=== PATIENT | female | born 1955 | race African-American/Black ===

== ENCOUNTER 2019-07-07 18:36 | Inpatient (IN) | payer OTHER ==
[~2019-07-07] VITALS: Ht 165.1 cm; Wt 68.5 kg
[~2019-07-07 18:36] MED LIST: ANTIVERT25 MG PO
[2019-07-07 18:41] VITALS: BP 103/66
[2019-07-07 20:40] LABS: URINE BILIRUBIN NEGATIVE (Negative); URINE BLOOD NEGATIVE (Negative); URINE CLARITY CLEAR; URINE COLOR YELLOW; URINE GLUCOSE-RANDOM* NEGATIVE (Negative); URINE KETONES NEGATIVE (Negative); URINE LEUKOCYTES-REFLEX NEGATIVE (Negative); URINE NITRITE-REFLEX NEGATIVE (Negative); URINE PROTEIN (DIPSTICK) NEGATIVE (Negative); URINE SPECIFIC GRAVITY <= 1.005 (1.005-1.035)
[2019-07-07 20:52] LABS: ABSOLUTE NEUTROPHILS 3.3 thou/uL (1.4-8.2); BASOPHILS 1.1 % (0.0-2.0); EOSINOPHILS 1.3 % (0.0-3.0); HEMATOCRIT 36.9 % (37.0-47.0); MCH 34.7 pg (26.0-34.0); MCHC 35.1 g/dL (28.0-37.0); MCV 98.7 fL (80.0-100.0); MONOCYTES 9.1 % (1.0-8.0); PLATELET COUNT 258 thou/uL (150-400); POLYS 47.5 % (36.0-66.0); RBC 3.74 mil/uL (4.20-5.00); RDW 14.9 % (10.5-14.5)
[2019-07-07 21:01] LABS: PROTIME 10.8 Seconds (9.3-11.4)
[2019-07-07 21:09] LABS: ALBUMIN 2.9 g/dL (3.4-5.0); ANION GAP 12 mmol/L (7-16); BUN 1 mg/dL (7-18); CALCIUM 9.2 mg/dL (8.5-10.1); CHLORIDE 95 mmol/L (98-107); CO2 28 mmol/L (21-32); CREATININE 0.7 mg/dL (0.6-1.0); GLUCOSE 92 mg/dL (74-106); LIPASE 143 U/L (73-393); MAGNESIUM 1.8 mg/dL (1.8-2.4); SGOT 164 U/L (15-37); SGPT 77 U/L (30-65); SODIUM 135 mmol/L (136-145); TOTAL BILIRUBIN 0.9 mg/dL (<0.1-1.0); TOTAL PROTEIN 7.2 g/dL (6.4-8.2); TROPONIN-I <0.06 ng/mL (<0.06)
[2019-07-07 21:20] LABS: POTASSIUM 2.2 mmol/L (3.5-5.1)
[2019-07-07 22:37] VITALS: BP 154/84
[2019-07-07] MEDS ORDERED: PRED FORTE 1% EY5 M1 OPHTHALMIC (22:43)
[2019-07-07 23:30] VITALS: BP 135/82
[2019-07-08 01:16] LABS: FOLIC ACID 9.1 ng/mL (8.6-58.9); TSH 1.876 uIU/mL (0.358-3.740)
[2019-07-08 02:29] LABS: AMP/METHAMP Negative (Negative); BARBITURATES Negative (Negative); BENZODIAZEPINES Negative (Negative); COCAINE Negative (Negative); METHADONE Negative (Negative); OPIATES Negative (Negative); PCP Negative (Negative)
[2019-07-08 04:00] VITALS: BP 107/56
--- NOTE | 2019-07-08 04:14 | NUR ---
PT. ARRIVED AROUND 2300; A0X4; ABLE TO TRANSFER FROM STRETCHER TO BED; AMBULATES WITH CANE; C/O PAIN OVER IV; R. HAND; POTASSIUM RUNNING; SHOUT DUE TO PAIN OVER HAND; REQUESTED TO CHANGE IV SITE; RESTLESS; AGITATED DUE PAIN OVER R. HAND; IV CHANGE TO L. FA; ST. "I DO NOT WANT ANYTHING ANYMORE"; EDUCATED ABOUT THE NEED OF HAVING POTASSIUM; HS MEDICATION GIVEN; EDUCATED ABOUT CALLING BEFORE STANDING FROM BED; ST. UNDERSTANDING; NO TREMORS; NO C/O N/V; NO C/O PAIN; AOX4; MONITORING; EARLY ON THE MORNING C/O ITCHING; DREDGE ENGINEER NOTIFIED; ORDERS RECEIVED; ASSESSMENT CHARGED; FOLLOWING POC; WILL PASS ON REPORT.
[2019-07-08 05:23] LABS: ALBUMIN 2.6 g/dL (3.4-5.0); CALCIUM 8.9 mg/dL (8.5-10.1); CREATININE 0.7 mg/dL (0.6-1.0); TOTAL BILIRUBIN 1.2 mg/dL (<0.1-1.0); TOTAL PROTEIN 6.3 g/dL (6.4-8.2)
[2019-07-08 05:35] LABS: POTASSIUM 2.8 mmol/L (3.5-5.1)
[2019-07-08 07:45] VITALS: BP 137/85
[2019-07-08 11:40] VITALS: BP 155/126
--- NOTE | 2019-07-08 13:04 | EKG ---
[place] [address] [facility] [place] [address] ELECTROCARDIOGRAM REPORT Name: RADHA MALONEY Room #: 205-P ADM IN M.R.#: [id number] ������������������ Admission: 07/07/19 ������������������ Attend Phys: Carrillo Leary MD Discharge: ������������������ Date of : 55 Report #: [id number] ����������������������������������������������������������������� [id number] THIS REPORT FOR: //name// [facility] ED Test Date: 2019-07-07 Test Time: 18:43:30 Pat Name: RADHA MALONEY Department: Room: 205 Gender: F Superintendent: CARYN : 1955 Requested By: Myles Ospina Order Number: [id number] MD: Trevin Wheatley Measurements Intervals [place] Rate: 75 P: 64 ND: 140 QRS: 44 QRSD: 88 T: 253 QT: 391 QTc: 437 Interpretive Statements Sinus rhythm Nonspecific ST and T wave abnormality Compared to ECG 06/03/2017 14:07:05 Sinus bradycardia no longer present Electronically Signed On 07-08-2019 13:04:33 CDT by Trevin Wheatley [email or web address] ��������������������������������������������� <ELECTRONICALLY SIGNED> ���������������������������������������� By: Trevin Wheatley MD, [facility] ��������������������������������������������� 07/08/19 1304 [id number] Trevin Wheatley MD, FAC /EPI
[2019-07-08 14:42] LABS: % SATURATION 129 % (20-39); IRON 117 ug/dL (50-170); TIBC 91 ug/dL (250-450)
[2019-07-08 15:01] LABS: CALCIUM 8.6 mg/dL (8.5-10.1); CREATININE 0.8 mg/dL (0.6-1.0); POTASSIUM 3.5 mmol/L (3.5-5.1)
[2019-07-08 16:00] VITALS: BP 97/64
--- NOTE | 2019-07-08 16:27 | NUR ---
ASSESSMENT CHARTED. PT ALERT AND ORIENTED. VSS. ON CIWA PROTOCAL. HAD I EPISODE OF DIARRHEA THIS AFTERNOON. FAMILY AT THE BEDSIDE. FAMILY UPDATED ON PT'S PROGRESS. FALL PRECAUTION IN PLACE. WILL CONTINUE TO MONITOR.
[2019-07-08 20:00] VITALS: BP 104/70
[2019-07-08 22:06] LABS: IgG 1220 mg/dL (700-1600)
[2019-07-09 01:10] LABS: GLYCOHEMOGLOBIN (HGB A1C) 5.1 % (4.8-5.6)
--- NOTE | 2019-07-09 04:20 | NUR ---
RECEIVED PT'S CARE AT 1913; PT. ON BED; AOX4; RELATIVES AT THE BED SIDE; NO C/O PAIN; DURING ASSESSMENT NO C/O HEADACHE; C/O MILD ITCHING; NO NAUSEA OR VOMITING; HS MEDICATION GIVEN; ST. HAVING DIARRHEA THROGUH THE DAY; EDUCATED ABOUT NPO AFTER MIDNIGHT; ST. UNDERSTANDING; REQUESTED PRN SLEEP MEDICATION AROUND 2330; MEDICATION GIVEN; ABLE TO REST THROUGH THE NIGHT WITH EYES CLOSED; NPO AFTER MIDNIGHT; ASSESSMENT CHARGED; FOLLOWING POC; WILL PASS ON REPORT.
[2019-07-09 04:30] VITALS: BP 123/65
[2019-07-09 06:16] LABS: CALCIUM 8.4 mg/dL (8.5-10.1); CREATININE 0.6 mg/dL (0.6-1.0); MAGNESIUM 1.7 mg/dL (1.8-2.4); PHOSPHORUS 2.4 mg/dL (2.5-4.9)
[2019-07-09 07:35] VITALS: BP 125/78
--- NOTE | 2019-07-09 10:10 | NUR ---
met with patient who lives alone in [facility]. She rec SSI. She has HBCS 2 hours a day every day. She does not drive, she is disabled. She has supportive family to assist with driving. She does not want ETOH cessation/support resources. She drinks approx 4 beers a day. She does not work so she reports it may take her 2 hours to drink a beer. She reports she sees no problem with ETOH consumption. Plan home independent once stable. [place].
[2019-07-09 11:50] VITALS: BP 144/79
[2019-07-09 13:12] LABS: CERULOPLASMIN 18.2 mg/dL (19.0-39.0)
[2019-07-09 14:07] LABS: ANA INTERPRETATION Negative (Negative)
[2019-07-09 15:30] VITALS: BP 103/76
[2019-07-09 16:09] LABS: HAV IgM AB (ANTI-HAV IgM) Negative (Negative); HEPATITIS B SURFACE AG Negative (Negative); HEPATITIS C VIRUS AB 0.1 (0.0-0.9)
--- NOTE | 2019-07-09 17:31 | NUR ---
PT ALERT AND ORIENTED. VSS. DENIED HAVING PAIN OR DISCOMFORT. CONTACT ISSOLATION DISCONTINUED. FAMILY UPDATED ON PT PROGRESS. NPO AFTER MIDNIGHT. EGD IN AM. WILL CONTINUE TO MONITOR.
[2019-07-09 20:04] VITALS: BP 123/76
--- NOTE | 2019-07-10 04:53 | NUR ---
Assumed care of pt at 1900. VSS and SR on monitor. Pt has c/o diarrhea which is being treated per poc. Pt has been NPO since midnight for procedure today. Pt did not get a full rest thru the night due to constant bathroom needs. Will continue to monitor and follow pt poc.
[2019-07-10 05:17] VITALS: BP 102/59
[2019-07-10 08:29] VITALS: BP 102/58
[2019-07-10 09:02] LABS: HEMATOCRIT 31.8 % (37.0-47.0); MCH 34.2 pg (26.0-34.0); MCV 100.5 fL (80.0-100.0); RBC 3.17 mil/uL (4.20-5.00); RDW 15.7 % (10.5-14.5)
[2019-07-10 09:16] LABS: ALBUMIN 2.3 g/dL (3.4-5.0); CALCIUM 8.7 mg/dL (8.5-10.1); CREATININE 0.6 mg/dL (0.6-1.0); MAGNESIUM 1.8 mg/dL (1.8-2.4); POTASSIUM 3.7 mmol/L (3.5-5.1); TOTAL BILIRUBIN 0.8 mg/dL (<0.1-1.0)
[2019-07-10 09:19] LABS: HEMOGLOBIN 10.8 gm/dL (12.0-15.0)
[2019-07-10 11:50] VITALS: BP 127/80
--- NOTE | 2019-07-10 15:07 | NUR ---
PT ALERT AND ORIENTED. VSS. HAD EGD THIS AM. DENIED HAVING PAIN. NO CONCERNS AT THIS TIME. PROGRESSING WELL TOWARD DISCHARGE GOAL. WILL CONTINUE TO MONITOR.
[2019-07-10 16:55] VITALS: BP 124/82
[2019-07-10 19:26] VITALS: BP 106/61
--- NOTE | 2019-07-11 01:15 | P ---
[facility] [place] [address] PROCEDURE REPORT Name: RADHA MALONEY Room #: 205-P ADM IN M.R.#: [id number] Admission: 07/07/19 ������������������ Attend Phys: Carrillo Leary MD Discharge: ������������������ Date of : 55 Report #: [id number] THIS REPORT FOR: //name// CC: [facility] physician/PCP CARRILLO Leary DATE OF SERVICE: 07/10/2019 PROCEDURE: EGD with biopsies. PATIENT OF: Dr. Carrillo Leary. INDICATIONS FOR PROCEDURE: This patient has had a month of nausea, vomiting, early satiety and weight loss. Etiology is uncertain. Informed consent for this procedure was obtained from the patient prior to the administration of any medication. The risks are as follows and include, but are not limited to bleeding, perforation, infection, complications of sedation and the possibility I could miss something. DESCRIPTION OF PROCEDURE: With the patient in the left lateral decubitus position, the Olympus upper videoscope was introduced through the upper esophageal sphincter and advanced under direct visualization to the third portion of the duodenum. Findings are noted on withdrawal of the scope. Second portion of the duodenum appears normal throughout as does the duodenal sweep and duodenal bulb. Pylorus, normal mucosa. The antrum is atrophic appearing and erythematous. Biopsies were obtained x2 from the antrum and x2 from the body of the stomach and placed in the same bottle. We are checking for H. pylori as well as any other findings that might show up histologically. Body, erythematous mucosa with areas of atrophic mucosa. Cardia and fundus, mildly atrophic mucosa also noted in the cardia and the fundus. The patient does have a small hiatal hernia. The scope was withdrawn into the esophagus. The Z-line is appropriately located at the top of gastric folds and appears normal. The esophageal mucosa appears normal throughout its entirety. The scope was withdrawn. The patient went to the recovery room in stable condition. She tolerated the procedure well. IMPRESSION: 1. Diffuse moderate atrophic gastritis. 2. Normal esophagus and duodenum to the third portion. RECOMMENDATIONS: To await the biopsy results. We will ask that she had a nuclear medicine gastric emptying study done tomorrow because it sounds like she may have gastroparesis. [address] [address] PROCEDURE REPORT Name: RADHA MALONEY Room #: 205-P [facility] IN M.R.#: [id number] Admission: 07/07/19 ������������������ Attend Phys: Carrillo Leary MD Discharge: ������������������ Date of : 55 Report #: [id number] Thank you very much once again for allowing me to participate in her care, Dr. Leary. ��������������������������������������������� <ELECTRONICALLY SIGNED> ���������������������������������������� By: Norma Alegria DO ��������������������������������������������� 07/11/19 0115 1325 [id number] Norma Alegria, DO /nt
--- NOTE | 2019-07-11 04:32 | NUR ---
ASSUMED PT CARE AT 1900. PT VSS AND PT PROGRESSING TOWARDS DISCHARGE GOALS. PT SLEPT THRU NIGHT. WILL CONTINUE TO MONITOR PER POC.
[2019-07-11 04:43] VITALS: BP 122/73
[2019-07-11 05:29] LABS: HEMATOCRIT 29.1 % (37.0-47.0); HEMOGLOBIN 10.1 gm/dL (12.0-15.0); MCH 34.9 pg (26.0-34.0); MCHC 34.5 g/dL (28.0-37.0); RBC 2.88 mil/uL (4.20-5.00); RDW 15.6 % (10.5-14.5); WBC 5.3 thou/uL (4.0-11.0)
[2019-07-11 05:56] LABS: CALCIUM 8.5 mg/dL (8.5-10.1); CREATININE 0.5 mg/dL (0.6-1.0); MAGNESIUM 1.6 mg/dL (1.8-2.4); POTASSIUM 3.5 mmol/L (3.5-5.1)
[2019-07-11 07:50] VITALS: BP 117/68
[2019-07-11] MEDS ORDERED: NEURONTIN 300300 M1 PO (10:08)
[2019-07-11] MEDS ORDERED: PANTOPRAZOLE SO40 M1 PO (10:08)
[2019-07-11] MEDS ORDERED: VITAMIN B-1100 M2 PO (10:09)
[2019-07-11] MEDS ORDERED: MULTIPLE VITAM1 EACH PO (10:10)
[2019-07-11 10:55] VITALS: BP 117/68
--- NOTE | 2019-07-11 12:26 | NUR ---
ASSESSMENT CHARTED. PT ALERT AND ORIENTED. VSS. DENIED HAVING PAIN OR DISCOMFORT.ORDERS GIVEN TO DISCHARGE PT TO HOME. DISCHARGE INSTRUCTIONS GIVEN TO PT. PT VERBERLIZED UNDERSTANDING.
--- NOTE | 2019-07-11 12:40 | NUR ---
Pt is dcing home this afternoon via family car. Pt has a rwalker for home use. Pt to have a f/u with new pcp at [facility] on the . Pt's dtr and family with questions about ethol tx resources and f/u mental health. Questions answered. Pt non commital on quiting. Support provided. Pt to f/u with her new pcp about getting a rolator walker. No cm interventions indicated. Case closed.
--- NOTE | 2019-07-11 16:06 | PATH ---
[facility] [address] [place] [address] PATHOLOGY RPT PROCEDURE Name: RADHA MALONEY Room #: 205-P DIS IN M.R.#: [id number] ������������������ Admission: 07/07/19 ������������������ Date of : 55 Discharge: 07/11/19 Report #: [id number] Path Case #: [id number] [facility] Accession Number: [id number] . 01 Material submitted: . stomach - BIOPSY GASTRITIS R/O H. PYLORI . 01 Clinical history: . Pre-OP DX: Nausea, vomiting, weight loss Post-OP DX: Gastritis . 02 Diagnosis: Gastritis mucosa, gastritis rule out H. 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 - Focal intestinal metaplasia present. - Negative for atrophy or dysplasia. - Properly controlled immunohistochemical stain performed showing scant number of organisms present. (IUV/db; 07/11/2019) LBQ 07/11/2019 1429 Local . 02 Electronically signed: . America Golden MD, Pathologist NPI- [id number] . 01 Gross description: . Received in formalin labeled "Radha Maloney, BX gastritis, rule out H. pylori," are 4 segments of mullins soft tissue measuring 1.0 x 0.6 x 0.1 cm in aggregate dimensions and ranging from 0.2 to 0.4 cm in maximum dimension. The specimen is submitted entirely in cassette A1. (TSD; 07/10/2019) TOB/TOB 07/10/[address] [place] [address] . 02 Pathologist provided ICD-10: K29.50, B96.81 . 02 CPT . 693515, D38112 Specimen Comment: A courtesy copy of this report has been sent to Specimen Comment: [phone], . Specimen Comment: Report sent to / DR BLANCO Performed at: [address] [id number] MD Damian Contreras MD Phone: [phone] Performed at: [address] [address] PATHOLOGY RPT PROCEDURE Name: RAHDA MALONEY Room #: 205-P DIS IN M.R.#: [id number] ������������������ Admission: 07/07/19 ������������������ Date of : 55 Discharge: 07/11/19 Report #: [id number] Path Case #: [id number] [address] [facility] [place], [place] [id number] MD America Golden MD Phone: [phone]
== END 2019-07-11 12:42 | disposition home or self-care (01) | DRG 391 ==
LOC: ER 18:36 → 2N 21:58 → EROBS 21:58 → 2N 22:44 → ENTRNSPT 07-11 12:32 → EDTRNSPTSTS 07-11 12:34 → 2N 07-11 12:42
PROVIDERS: Emergency Medicine; Nurse Practitioner; Nurse Practitioner Family; ADMIT Internal Medicine
PROC: 0DB68ZX Excision of Stomach, Via Natural or Artificial Opening Endoscopic, Diagnostic (ICD-10-PCS; principal; 2019-07-10)
DX: K31.84 Gastroparesis (principal); E43 Unspecified severe protein-calorie malnutrition; E87.6 Hypokalemia; F10.10 Alcohol abuse, uncomplicated; K44.9 Diaphragmatic hernia without obstruction or gangrene; F17.210 Nicotine dependence, cigarettes, uncomplicated; F10.129 Alcohol abuse with intoxication, unspecified; R74.0 Nonspecific elevation of levels of transaminase and lactic acid dehydrogenase [LDH]; K76.0 Fatty (change of) liver, not elsewhere classified; K29.40 Chronic atrophic gastritis without bleeding; H16.3 Interstitial and deep keratitis; G62.9 Polyneuropathy, unspecified; Z68.25 Body mass index [BMI] 25.0-25.9, adult; Z71.6 Tobacco abuse counseling; Z71.41 Alcohol abuse counseling and surveillance of alcoholic
CPT/HCPCS: 10081; 62110; 62900; 70005

== ENCOUNTER 2019-08-01 13:36 | Inpatient (IN) | payer OTHER ==
[~2019-08-01] VITALS: Ht 165.1 cm; Wt 78.5 kg
--- NOTE | ~2019-08-01 | EMS ---
[facility] [address] [place] [address] EMS Patient Care Report Name: RADHA MALONEY Room #: 362-P ADM IN M.R.#: [id number] Admission: 08/01/19 Attend Phys: Blanca Kaufman MD Discharge: Date of : 55 Report #: [id number] THIS REPORT FOR: //name// Report Transmitted: 08/01/2019 21:58 EMS Care Summary [place], [place]/[facility] Incident [id number] @ 08/01/2019 12:59 Incident Location [address] [place] [address] Patient RADHA MALONEY Female, 64 Years 1955 Patient Address [address] [place], [place] [id number] Patient History Other,Gastro-Esophageal Reflux Disease (GERD), Patient Allergies No known allergies, Patient Medications Humira, Gabapentin, Pantoprazole, Chief Complaint Unable to get up when I fall Disposition Transported No Lights/[place] Dispatch Reason Falls Transported To [facility] Narrative Family reports that pt has fallen several times over the past 24 hrs and was on the floor for 2 hours before calling 911. 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 Pt complains of feeling weak and has not eaten in 3 days. She is unable to hold herself upright without a cane and is mildly dizzy. Pt denies having any medical complaint prior to falls or suffering any physical trauma as a result. CPSS exam is negative and pt was seen by EMS last night and CPSS was reported to negative at that time also. Exam reveals thick oral candidiasis covering her entire tongue with brown nicotine staining on the posterior portion. 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 No other signs of CVA found upon exam. Initial Vitals @13:22P: 79,R: 14,BP: 112/75,Pain: 0/10,GCS: 15,SpO2: 96,Revised Trauma: 12, @13:10P: 81,R: 18,BP: 117/81,Pain: 0/10,GCS: 15,Temp: 99.5F,Glucose: 151,SpO2: 95,Revised Trauma: 12, Assessments @13:11MENTAL:Person Oriented,Time Oriented,Place Oriented,Event Oriented,SKIN:HEENT:Eyes: Left: Other,Eyes: Left Pupil: 2-mm,Eyes: Left: Blind,Eyes: Right Pupil: 4-mm,Neck/Airway: No Abnormalities,LUNG SOUNDS:General: No Abnormalities,ABDOMEN:General: No Abnormalities,PELVIS//GI:Incontinence,EXTREMITIES:Capillary Refill: Left Upper: < 2 Sec,Left Leg: Edema,Right Leg: Edema,Left Arm: No Abnormalities,Right Arm: No Abnormalities,PULSE:Radial: 2+ Normal,NEURO:No Abnormalities,@13:24MENTAL:Place Oriented,Event Oriented,Person Oriented,Time Oriented,SKIN:HEENT:Eyes: Left Pupil: 2-mm,Eyes: Left: Constricted,Eyes: Right Pupil: 4-mm,Eyes: Left: Other,Eyes: Left: Blind,Head/Face: No Abnormalities,Neck/Airway: No Abnormalities,LUNG SOUNDS:General: No Abnormalities,ABDOMEN:General: No Abnormalities,PELVIS//GI:No Abnormalities,EXTREMITIES:Right Leg: Edema,Left Leg: Edema,Capillary Refill: Left Upper: < 2 Sec,Left Arm: No Abnormalities,Right Arm: No Abnormalities,PULSE:Radial: 2+ Normal,NEURO:No Abnormalities, Impression Fever Procedures @13:10ALS AssessmentResponse: UnchangedSucceeded@13:15StairchairResponse: Unchanged@13:17StretcherResponse: Unchanged Timeline 12:56,Call Received 12:56,Dispatch Notified 12:59,Dispatched 13:00,En Route 13:04,On Scene 13:05,At Patient [address] [place] [address] EMS Patient Care Report Name: RADHA MALONEY Room #: 362-P [facility] IN M.R.#: [id number] Admission: 08/01/19 Attend Phys: Blanca Kaufman MD Discharge: Date of : 55 Report #: [id number] 13:10,ALS Assessment,Response: UnchangedSucceeded, 13:10,BP: 117/81 M,PULSE: 81,RR: 18 R,SPO2: 95 Ox,ETCO2: ,B,PAIN: 0,GCS: 15, 13:15,Stairchair,Response: Unchanged 13:17,Stretcher,Response: Unchanged 13:19,Depart Scene 13:22,BP: 112/75 M,PULSE: 79,RR: 14 R,SPO2: 96 Ox,ETCO2: ,BG: ,PAIN: 0,GCS: 15, 13:32,At Destination 13:48,Call Closed Disclaimer v1.1 Copyright 2019 [employer] This EMS Care Summary contains data elements from the applicable legal record (which may be displayed differently). It is designed to provide pertinent information for the following purposes: continuity of care, clinical quality, and state data reporting. The complete legal record is available to ED staff and administrators of the receiving hospital in [employer] Patient Tracker. All data is provided "as is."
[~2019-08-01 13:36] MED LIST changes: +MULTIPLE VITAM1 EACH PO; +NEURONTIN 300300 M1 PO; +PANTOPRAZOLE SO40 M1 PO; +PRED FORTE 1% EY5 M1 OPHTHALMIC; +VITAMIN B-1100 M2 PO
[2019-08-01 14:53] LABS: HEMOGLOBIN 12.6 gm/dL (12.0-15.0); MCH 34.5 pg (26.0-34.0); MCHC 35.1 g/dL (28.0-37.0); MCV 98.2 fL (80.0-100.0); PLATELET COUNT 215 thou/uL (150-400); RBC 3.66 mil/uL (4.20-5.00); RDW 14.8 % (10.5-14.5); WBC 18.3 thou/uL (4.0-11.0)
[2019-08-01 15:13] LABS: ATYPICAL LYMPHS 1 %
[2019-08-01 15:14] LABS: ABSOLUTE NEUTROPHILS 16.7 thou/uL (1.4-8.2)
[2019-08-01 15:16] LABS: ANION GAP 10 mmol/L (7-16); BUN 12 mg/dL (7-18); CALCIUM 8.8 mg/dL (8.5-10.1); CHLORIDE 89 mmol/L (98-107); CO2 26 mmol/L (21-32); CREATININE 0.8 mg/dL (0.6-1.0); GLUCOSE 100 mg/dL (74-106); POTASSIUM 3.3 mmol/L (3.5-5.1); SODIUM 125 mmol/L (136-145)
[2019-08-01 15:23] LABS: ALBUMIN 2.2 g/dL (3.4-5.0); MAGNESIUM 1.9 mg/dL (1.8-2.4); SGOT 174 U/L (15-37); SGPT 55 U/L (30-65); TOTAL BILIRUBIN 2.4 mg/dL (<0.1-1.0); TOTAL PROTEIN 7.5 g/dL (6.4-8.2); TROPONIN-I <0.06 ng/mL (<0.06)
[2019-08-01 16:06] LABS: URINE BILIRUBIN 3+ (Negative); URINE BLOOD 3+ (Negative); URINE CLARITY SL CLOUDY; URINE COLOR YELLOW; URINE GLUCOSE-RANDOM* TRACE (Negative); URINE KETONES TRACE (Negative); URINE LEUKOCYTES-REFLEX NEGATIVE (Negative); URINE PROTEIN (DIPSTICK) 2+ (Negative); URINE UROBILINOGEN >= 8.0 E.U./dl (0.2-1.0)
[2019-08-01 16:11] LABS: ICTOTEST (BILI CONFIRMATORY) Positive (Negative); URINE NITRITE-REFLEX POSITIVE (Negative)
[2019-08-01 16:24] LABS: CASTS None Seen /LPF (None Seen); CRYSTALS None Seen /LPF (None Seen); MUCUS >6 Heavy strn/LPF (None Seen); SQUAMOUS 4-10 Moderate /LPF (0-3); URINE RBC 3-10 Few /HPF (0-2); URINE WBC-REFLEX 0-5 Rare /HPF (0-5)
[2019-08-01 17:54] VITALS: BP 123/65
[2019-08-01 18:50] VITALS: BP 119/74
[2019-08-01 18:53] VITALS: BP 123/65
[2019-08-02 00:17] VITALS: BP 97/59
--- NOTE | 2019-08-02 03:54 | NUR ---
Admission history and assessments completed. Careplan initiated. IVFluids infusing. Patuent with history of alcohol use and 1/2 pack daily smoker. CIWA 0 so far. Orders received for Nicotine patch. High fall risks, fall precautions in place. Up to BSC x 1 assist for bathroom needs.
[2019-08-02 04:46] VITALS: BP 105/66
[2019-08-02 07:49] VITALS: BP 104/68
--- NOTE | 2019-08-02 10:18 | EKG ---
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 : 1955 Requested By: Ari Bernstein Order Number: [id number] MD: Boogie Dobbs Measurements Intervals [place] Rate: 91 P: 56 GA: 132 QRS: 14 QRSD: 72 T: QT: 450 QTc: 554 Interpretive Statements Sinus rhythm Probable left atrial enlargement Nonspecific T abnrm, anterolateral leads Prolonged QT interval Compared to ECG 07/07/2019 18:43:30 Prolonged QT interval now present ST (T wave) deviation no longer present Electronically Signed On 08-02-2019 10:18:12 CDT by Boogie Dobbs [email or web address] <ELECTRONICALLY SIGNED> By: Boogie Dobbs MD 08/02/19 1018 1355 1355 Boogie Dobbs MD /NHUNG
[2019-08-02 11:23] VITALS: BP 111/73
[2019-08-02 11:31] LABS: CREATININE 0.6 mg/dL (0.6-1.0)
[2019-08-02 11:33] LABS: POTASSIUM 2.8 mmol/L (3.5-5.1)
[2019-08-02 15:50] VITALS: BP 122/77
[2019-08-02 17:15] LABS: CALCIUM 7.5 mg/dL (8.5-10.1); CREATININE 0.6 mg/dL (0.6-1.0)
[2019-08-02 17:19] LABS: POTASSIUM 2.7 mmol/L (3.5-5.1)
[2019-08-02 19:15] VITALS: BP 111/68
--- NOTE | 2019-08-02 20:02 | NUR ---
pt knows his name and birthday, pt is confused at time, pt is continuing iv fliud , iv abx ,and k amd mag replacement, pt's vs ,o2sat are stable, but we needs to encurage pt to drink and eat, pt 's famly stay at pt's bedside,RN will report to next shift to keep eye on pt.
[2019-08-03] VITALS (7 sets, daily range): BP systolic 110–133; BP diastolic 71–86
--- NOTE | 2019-08-03 06:06 | NUR ---
ASSUMED CARE AT 1900. SPOKE WITH FAMILY AT START OF SHIFT; THEY ARE CONCERNED ABOUT MALNUTRITION/POOR APPETITE AND ALSO REPORT PT HAS BEEN CRYING OFF AND ON FOR THE LAST 8 MONTHS; STATED A GRANDSON HAD BEEN SHOT/KILLED IN OCTOBER, WHICH WAS THE ONLY STRESSOR THEY COULD THINK OF; FAMILY DID NOT ACKNOWLEDGE/REPORT THAT PT IS A DAILY, CHRONIC DRINKER. WHEN ASKED IF SHE FELT DEPRESSED OR ANXIOUS, PT WOULD ONLY SAY NO, BUT MINIMALLY ENGAGED WITH STAFF. PT DENIES PAIN OR SOB. DENIES NAUSEA BUT HAS POOR APPETITE, HS ACCUCHECK WAS 83, ASKED PT TO HAVE A SNACK AND DECLINED ALMOST EVERYTHING OFFERED; FINALLY AGREED TO HAVE A POPSICLE BUT ONLY ATE A SMALL PART OF IT. BECOMES RESTLESS WHEN SHE NEEDS TO USE THE BATHROOM, KEEPS FORGETTING SHE HAS AN EXTERNAL CATHETER. OVERNIGHT CIWA SCORE HAS BEEN AROUND A 4 FOR RESTLESSNESS AND MILD ANXIETY; THIS AM PT IS NOTED TO HAVE VERY NOTICEABLE TREMORS AND IS JUMPY IN BED. PT ALSO HAS A FEVER OF 102.9 THIS AM; OBTAINED ORDER FOR TYLENOL. NO OTHER CONCERNS, WILL CONTINUE TO MONITOR.
[2019-08-03 07:51] LABS: HEMATOCRIT 30.1 % (37.0-47.0); MCH 34.5 pg (26.0-34.0); MCHC 34.7 g/dL (28.0-37.0); MCV 99.2 fL (80.0-100.0); RBC 3.04 mil/uL (4.20-5.00); RDW 13.6 % (10.5-14.5); WBC 15.1 thou/uL (4.0-11.0)
[2019-08-03 07:52] LABS: HEMOGLOBIN 10.5 gm/dL (12.0-15.0)
[2019-08-03 08:03] LABS: CALCIUM 7.7 mg/dL (8.5-10.1); CREATININE 0.6 mg/dL (0.6-1.0); MAGNESIUM 1.8 mg/dL (1.8-2.4)
--- NOTE | 2019-08-03 11:39 | EKG ---
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: CLAYTON : 1955 Requested By: Pina Noble Order Number: [id number] MD: Boogie Dobbs Measurements Intervals [place] Rate: 79 P: -5 KS: 114 QRS: 15 QRSD: 82 T: 72 QT: 462 QTc: 530 Interpretive Statements Sinus rhythm Borderline short [place] interval Probable left atrial enlargement Borderline repolarization abnormality Prolonged QT interval Compared to ECG 08/01/2019 13:55:20 No significant changes Electronically Signed On 08-03-2019 11:39:24 CDT by Boogie Dobbs [email or web address] <ELECTRONICALLY SIGNED> By: Boogie Dobbs MD 08/03/19 1139 14 Boogie Dobsb MD /NHUNG
--- NOTE | 2019-08-03 19:47 | NUR ---
PT knows her name and pt can follow some commands, but pt is confusion at time, RN has reported to dr about pt's low K and low Na ,faver and abnormal chest xray, new order received. RN has update pt's information.
[2019-08-04 04:35] VITALS: BP 103/71
--- NOTE | 2019-08-04 06:36 | NUR ---
ASSUMED CARE AT 1900. PT MORE CONFUSED THIS SHIFT COMPARED TO PREVIOUS NIGHT, REQUIRES MORE QEUING TO ANSWER STAFF QUESTIONS; WHEN FAMILY STILL IN ROOM, TRIED TO GET PT TO EAT OR DRINK SOMETHING, PT RESPONDED THAT SHE DIDN'T WANT ANYTHING "EXCEPT MAYBE A NATTY LIGHT" BEER. LUNGS COARSE, OCCASIONAL NONPRODUCTIVE COUGH; REQUIRES MULTIPLE REMINDERS TO SWALLOW ANYTHING SHE IS GIVEN SHE TENDS TO HOLD IT IN HER MOUTH FOR LONG PERIODS OF TIME, THOUGH SHE FORGOT IT WAS THERE. VERY DARK URINE OUTPUT THROUGH EXTERNAL CATHETER, OCCASIONALLY INCONT D/T RESTLESSNESS THAT DISPLACES CATHETER. ONE TIME MODERATE LOOSE, INCONT STOOL OVERNIGHT. HR TACHY MUCH OF THE NIGHT 108-120, FINALLY DROPPING BELOW 100 AFTER FEVER DROPPED. SPIKED A TEMP OF 103 AROUND 0100; GAVE TYLENOL AND A LUKEWARM SPONGE BATH TO REDUCE TEMP, DROPPED TO 98. NEW CONSULT ORDERED FOR PSYCH FOR ALCOHOL WITHDRAWAL. NO OTHER CONCERNS, WILL CONTINUE TO MONITOR.
[2019-08-04 07:39] VITALS: BP 126/85
--- NOTE | 2019-08-04 07:54 | HC ---
[facility] [address] CONSULTATION Name: RADHA MALONEY Room #: 362-[facility] IN M.R.#: [id number] Admission: 08/01/19 Attend Phys: Blanca Kaufman MD Discharge: Date of : 55 Report #: [id number] THIS REPORT FOR: //name// CC: [facility] physician/PCP Blanca Kaufman DATE OF SERVICE: 08/02/2019 INDICATION: Chest pain. 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 She lives alone and continues to drink alcohol on regular basis. It seems that she has had decreased oral intake. She just could not get up and presented to the hospital for admission. She does complain of intermittent episodes of the left sternal chest discomfort. It is difficult for the patient to describe. She was recently hospitalized for alcohol intoxication. She did undergo an EGD, found to have atrophic gastritis with a hiatal hernia. There is no history of dyspnea, PND, or orthopnea. PAST MEDICAL HISTORY: Negative for diabetes, hypertension, or [place]. ALLERGIES: None. MEDICATIONS: Antivert, Neurontin, Protonix 40 mg, thiamine, and multivitamins. SOCIAL HISTORY: Positive for tobacco use. FAMILY HISTORY: Negative for premature CAD. REVIEW OF SYSTEMS: A full 10-point review of systems performed. Only the pertinent positives and negatives are described in the HPI. PHYSICAL EXAMINATION: VITAL SIGNS: Blood pressure is 120/70, heart rate is 80 beats per minute. GENERAL APPEARANCE: This is a well-developed, well-nourished female in no acute distress. HEENT: Normocephalic, atraumatic. Oral mucosa moist. NECK: Supple. LUNGS: Clear to auscultation. CARDIAC: Regular rate and rhythm, S1, S2 positive. ABDOMEN: Soft, nontender. EXTREMITIES: No edema, no cyanosis. DIAGNOSTIC DATA: ECG reveals sinus rhythm, T-wave inversions in the precordial [facility] [address] [address] CONSULTATION Name: ABHAY MALONEYLO Room #: 362-P ADM IN M.R.#: [id number] Admission: 08/01/19 Attend Phys: Blanca Kaufman MD Discharge: Date of : 55 Report #: [id number] leads, no change compared to baseline. LABORATORY VALUES: Sodium is 127, potassium is 2.8, and creatinine is 0.6. Troponin on admission is negative. Chest x-ray reveals right upper lobe pneumonitis. ASSESSMENT AND PLAN: 1. Chest pain syndrome, the differential diagnosis includes ischemia, GI, musculoskeletal. We would continue with Protonix. Check serial troponin levels. Once her pneumonia and alcohol abuse had been stabilized, consider noninvasive stress testing. We will obtain an echo. 2. Hypokalemia, replete as per protocol. 3. Urinary tract infection, continue antibiotics, check cultures. 4. Alcohol abuse, withdrawal protocol in place. 5. Hyponatremia, fluids and check sodium levels. <ELECTRONICALLY SIGNED> By: Boogie Dobbs MD 08/04/19 0754 1644 1152 Boogie Dobbs MD /nt
[2019-08-04 08:12] LABS: HEMATOCRIT 30.7 % (37.0-47.0); HEMOGLOBIN 10.6 gm/dL (12.0-15.0); MCH 34.2 pg (26.0-34.0); MCHC 34.4 g/dL (28.0-37.0); MCV 99.6 fL (80.0-100.0); RBC 3.09 mil/uL (4.20-5.00); WBC 21.4 thou/uL (4.0-11.0)
[2019-08-04 08:34] LABS: ALBUMIN 1.4 g/dL (3.4-5.0); CALCIUM 7.5 mg/dL (8.5-10.1); CREATININE 0.6 mg/dL (0.6-1.0); PHOSPHORUS 2.5 mg/dL (2.5-4.9); POTASSIUM 3.6 mmol/L (3.5-5.1)
--- NOTE | 2019-08-04 09:32 | 2DMMODE ---
[facility] [address] [place] [address] 2 D/M-MODE ECHOCARDIOGRAM Name: ABHAY MALONEYLO Room #: 362-P ADM IN M.R.#: [id number] Admission: 08/01/19 Attend Phys: Blanca Kaufman Discharge: Date of : 55 Report #: [id number] THIS REPORT FOR: //name// APPROVED REPORT Study performed: 08/04/2019 08:43:12 EXAM: Comprehensive 2D, Doppler, and color-flow Echocardiogram Patient Location: Bedside Room #: 362 Status: routine BSA: 1.75 HR: 110 bpm BP: 126/85 mmHg Rhythm: Tachycardia Other Information Study Quality: Adequate Indications Chest Pain Hx: ETOH, Tobacco abuse 2D Dimensions RVDd: 34.97 mm IVSd: 12.47 (7-11mm) LVOT Diam: 20.63 (18-24mm) LVDd: 43.26 mm PWd: 9.79 (7-11mm) LVDs: 31.88 (25-40mm) Aortic Root: 33.22 mm Volumes Left Atrial Volume (Systole) Single Plane 4CH: 23.42 mL Single Plane 2CH: 33.13 mL LA ESV Index: 18.00 mL/m2 Aortic Valve AoV Peak Brenden.: 1.44 m/s AO Peak Gr.: 8.33 mmHg LVOT Max P.96 mmHg LVOT Max V: 1.22 m/s ELENA Vmax: 2.83 cm2 Mitral Valve E/A Ratio: 0.8 MV Decel. Time: 178.98 ms [facility] [address] [place] [address] 2 D/M-MODE ECHOCARDIOGRAM Name: ABHAY MALONEYLO Room #: 362-P [facility] IN .R.#: [id number] Admission: 08/01/19 Attend Phys: Blanca Kaufman Discharge: Date of : 55 Report #: [id number] MV E Max Brenden.: 0.91 m/s MV A Brenden.: 1.11 m/s MV PHT: 51.91 ms IVRT: 58.82 ms Pulmonary Valve PV Peak Brenden.: 1.32 m/s PV Peak Gr.: 6.94 mmHg Tricuspid Valve TR Peak Brenden.: 2.70 m/s RAP Estimate: 5.00 mmHg TR Peak Gr.: 29.25 mmHg PA Pressure: 35.00 mmHg Left Ventricle The left ventricle is normal size. There is normal LV segmental wall motion. Mild basal septal hypertrophy is present. Left ventricular systolic function is normal. LVEF is 55%. Mild diastolic dysfunction is present (impaired relaxation pattern). Right Ventricle The right ventricle is normal size. The right ventricular systolic function is normal. Atria The left atrium size is normal. The right atrium size is normal. Aortic Valve The aortic valve is normal in structure. No aortic regurgitation is present. There is no aortic valvular stenosis. Mitral Valve The mitral valve is normal in structure. Trace mitral regurgitation. Tricuspid Valve The tricuspid valve is normal in structure. Trace tricuspid regurgitation. Estimated PAP is 35mmHg. Pulmonic Valve Pulmonic valve is not well visualized. Great Vessels The aortic root is normal in size. Ascending aorta is not well visualized. IVC is normal in size and collapses >50% with inspiration. [facility] [place] [place] [address] 2 D/M-MODE ECHOCARDIOGRAM Name: RADHA MALONEY Room #: 362-P [facility] IN ..#: [id number] Admission: 08/01/19 Attend Phys: Blanca Kaufman Discharge: Date of : 55 Report #: [id number] Pericardium There is no pericardial effusion. <Conclusion> Left ventricular systolic function is normal. There is normal LV segmental wall motion. LVEF is 55%. Mild diastolic dysfunction The aortic valve is normal in structure. No aortic regurgitation or stenosis The mitral valve is normal in structure. Trace mitral regurgitation. Trace tricuspid regurgitation. Estimated pulmonary artery pressure of 35mmHg. There is no pericardial effusion. <ELECTRONICALLY SIGNED> By: Trevin Wheatley MD, FACC 08/04/19 0932 1 0932 Trevin Wheatley MD, FACC /INF
[2019-08-04 11:47] VITALS: BP 120/84
[2019-08-04 16:10] VITALS: BP 102/72
[2019-08-04 19:40] VITALS: BP 124/81
--- NOTE | 2019-08-04 20:28 | NUR ---
Assumed care approx. 0700 this AM. Patient oriented x3 but drowsy and lethargic at times. Sinus tach on the monitor. Female external cath used as best as possible to catch urine-urine still dark jenny. 2 bm's noted today. CIWA scores 5-6. Blood culture redraw ordered per verbal order from Dr. Noble. MRSA swab obtained-patient placed in contact isolation. Onetime dose of vanc IV infused. Family updated at bedside and on the phone about patients current condition. Fluids and food pushed but patient has been refusing to eat most of the time, and will only occassionally drink fluids. Meds were crushed each time and patient sat up in fowlers position when eating and drinking. Patient spiked a fever of 100.0 around lunch time-PO tylenol given, fever decreased to 99.5. Patient not progressing much toward plan of care at this time.
--- NOTE | 2019-08-04 21:11 | NUR ---
ASSUMED CARE AT 1900. OBTAINED ORDER FOR GRAY CATHETER FOR ACCURATE I&O; STILL HAS POOR ORAL INTAKE. TEMP OF 100.5, THEN RECHECK SHOWED 103.3 AXILARY; GAVE TYLENOL, TURNED FAN ON. RR OF 40 POST BREATHING TREATMENT, HR 120. WILL RECHECK VS AND CONTINUE TO MONITOR.
[2019-08-05 00:41] VITALS: BP 100/70
[2019-08-05 05:01] VITALS: BP 132/86
[2019-08-05 05:54] LABS: ALBUMIN 1.3 g/dL (3.4-5.0); CALCIUM 7.5 mg/dL (8.5-10.1); CREATININE 0.8 mg/dL (0.6-1.0); MAGNESIUM 1.7 mg/dL (1.8-2.4); PHOSPHORUS 2.3 mg/dL (2.5-4.9); POTASSIUM 3.3 mmol/L (3.5-5.1); TOTAL BILIRUBIN 2.4 mg/dL (<0.1-1.0); TOTAL PROTEIN 4.9 g/dL (6.4-8.2)
[2019-08-05 08:06] VITALS: BP 101/71
--- NOTE | 2019-08-05 10:37 | HC ---
[facility] [place] [address] CONSULTATION Name: RADHA MALONEY Room #: 362-P ADM IN M.R.#: [id number] Admission: 08/01/19 Attend Phys: Blanca Kaufman MD Discharge: Date of : 55 Report #: [id number] THIS REPORT FOR: //name// CC: HEIKE physician/PCP Blanca Kaufman DATE OF SERVICE: 08/04/2019 INFECTIOUS DISEASE CONSULTATION REASON FOR CONSULTATION: I was asked to evaluate concerning fever and sepsis in the setting of alcohol withdrawal. HISTORY OF PRESENT ILLNESS: The patient is a 64-year-old with history of alcohol abuse, who presented on 08/01/2019 through the Emergency Room with generalized weakness for 48 hours. She has been falling at home. No specific trauma subsequently identified. Had evidence of right upper lobe aspiration pneumonia. Remains confused. She has had alcohol withdrawal symptoms. Initial white count was 18,000, now up to 21,000. She has had temperature up to 39 degrees. She has had loose nonproductive cough. Discussion with nursing staff, appears to have aspirated. She has had hypertension that has responded to IV fluids. Initial CPK was 3000 and is now down to 1800. Urine output has been reasonable. She has been hyponatremic. Despite being on IV antibiotic therapy, she continues to run fever. She had been placed on ceftriaxone initially, now on Zosyn and was given vancomycin today. ALLERGIES: There are no known allergies. MEDICATIONS: As noted on her MAR, now on vancomycin, Ceftin and Zosyn. PAST MEDICAL HISTORY: Alberto's syndrome, alcohol abuse, diagnosed with H. pylori gastritis during her last hospital stay. FAMILY HISTORY: Noncontributory. SOCIAL HISTORY: She is a smoker of cigarettes and uses alcohol as noted above. No other HIV risk factors noted. REVIEW OF SYSTEMS: The patient was fairly lethargic and was not a good historian. Denied any headache, mouth sores, skin ulcers, chest pain, nausea, vomiting or diarrhea. She has a peripheral IV in place in the right arm and the left neck, and she has an external urinary catheter in place. Full 10-point review of systems was otherwise negative. PHYSICAL EXAMINATION: VITAL SIGNS: Temperature is 100 degrees, pulse 118, blood pressure 120/84 and [facility] [address] [place] [address] CONSULTATION Name: RADHA MALONEY Room #: [facility] ADM IN M.R.#: [id number] Admission: 08/01/19 Attend Phys: Blanca Kaufman MD Discharge: Date of : 55 Report #: [id number] respiratory rate 18. SKIN: With some bruising to her right buttock laterally. No palpable adenopathy. HEENT: Conjunctival swelling involving the left eye. Mouth was edentulous. NECK: Supple. LUNGS: Consolidation in the right posterior mid chest. No rub. HEART: Tachycardic and regular, without murmur, gallop or rub. ABDOMEN: Mildly distended. It was tender in the epigastric and right upper quadrant. There was no appreciable mass or hepatosplenomegaly noted. GENITOURINARY: External genitalia without lesion and external Mckeon catheter in place. RECTAL: Not performed. EXTREMITIES: With no clubbing, cyanosis or edema. NEUROLOGIC: The patient was arousable, needed help to roll over in bed, but was able to move all extremities. Sensation was intact in upper and lower extremities. PSYCHIATRIC: Mood was lethargic. LABORATORY STUDIES: Echocardiogram showed normal ejection fraction. Sodium 124, potassium 3.6, bicarbonate 20, creatinine 0.6. Hemoglobin 10.6, WBC 21.4, platelet count 160,000. Ammonia less than 10. Chest x-ray as noted above. CT scan showed the same. Blood cultures are negative to date. Urinalysis with rare wbc's, moderate bacteria. CPK 1800. On admission, her alkaline phosphatase was 177, bilirubin 2.4, ALT 55, AST 174. IMPRESSION: A 64-year-old with alcoholism, presents with encephalopathy, fever, aspiration pneumonia, persistent leukocytosis. Would be concerned about alcohol hepatitis versus pancreatitis in addition to her aspiration pneumonia. RECOMMENDATIONS: We will continue broad antibiotic coverage. Attempt to obtain sputum culture. Await blood cultures. Repeat her liver function tests and amylase and lipase. Follow up CPK. Continue with hydration. She will also need to have her H. pylori treated. <ELECTRONICALLY SIGNED> By: Celso Chacon MD 08/05/19 1037 [id number] [id number] Celso Chacon MD /nt
--- NOTE | 2019-08-05 11:33 | NUR ---
Dr. Silva paged immediately after positive sepsis screening result. Dr. Silva called back at 1130. Results and patient condition discussed over the phone with the physician. Dr. Silva said multiple etiologies including alcohol withdrawal are involved, and not necessarily (+) for sepsis at this time. Will continue to monitor.
[2019-08-05 14:07] LABS: HIV ANTIBODY Non Reactive (Non Reactive)
--- NOTE | 2019-08-05 16:41 | NUR ---
Assumed care approx. 0700 this AM. Patient gone most of the morning and part of the afternoon for a stress test in nuclear med. CIWA scores have been low averaging 2-4. Patient noted to be more alert and oriented with less tremors today compared to previous shifts. Dry cough still present. Aspiration risk noted. Mckeon catheter intact with jenny/orange colored urine. Low grade fever this AM but has since resolved. Sepsis screening positive, Dr. Silva notified (see previous note); no interventions done/no new orders. Maintenance fluids infusing at 80mls/hr. Patient appears to be slightly progressing toward goals at this time.
--- NOTE | 2019-08-05 17:28 | NUR ---
Case opened to follow for dc planning. Pt known to cm from an admission last month. She is disabled and lives in a ground level apt alone. She has a rwalker and has a pcp at [facility]. She can not recall if she had a f/u appt since her last admission. She drinks daily and was not interested in quiting last month. Info was provided to her and her dtr; family was hoping they could convince her to seek tx. PT/OT/ST evals are pending. Pt may not be safe to return home alone at mt. Possible rehab referral pending the care team recommendations. The pt has homemaker services 2hrs daily thru [employer] [place] Cm role re introduced to pt at bedside. Will follow.
[2019-08-05 19:12] VITALS: BP 127/82
[2019-08-05 23:58] VITALS: BP 104/70
[2019-08-06 04:12] VITALS: BP 115/77
[2019-08-06 04:57] LABS: HEMOGLOBIN 9.7 gm/dL (12.0-15.0); MCH 33.7 pg (26.0-34.0); MCHC 33.4 g/dL (28.0-37.0); MCV 100.6 fL (80.0-100.0); RBC 2.88 mil/uL (4.20-5.00); RDW 14.1 % (10.5-14.5); WBC 21.2 thou/uL (4.0-11.0)
[2019-08-06 05:07] LABS: ALBUMIN 1.2 g/dL (3.4-5.0); CALCIUM 7.5 mg/dL (8.5-10.1); CREATININE 0.6 mg/dL (0.6-1.0); MAGNESIUM 2.1 mg/dL (1.8-2.4); PHOSPHORUS 3.2 mg/dL (2.5-4.9); POTASSIUM 3.6 mmol/L (3.5-5.1)
[2019-08-06 05:15] LABS: PLATELET COUNT 271 thou/uL (150-400)
--- NOTE | 2019-08-06 05:23 | NUR ---
PATIENT IS ALERT TO SELF TIME AND SITUATION. PATIENT CAN BE FORGETFUL AT TIMES. PATIENT HAD FEVER AT START OF SHIFT. NO FEVER SENSE. PATIENTS LBM WAS THE 15TH. PATIENT IS ACCUCHECKS TO MONITOR INTAKE. PATIENT IS NPO. PATIENT IS NSR TO SINUS TACH. PATIENT IS CIWA 3-4. PATIENT IS RESTING COMFORTABLY IN BED. WCM. PATIENT IS PROGRESSING TO GOALS.
[2019-08-06 06:50] LABS: ABSOLUTE NEUTROPHILS 20.1 thou/uL (1.4-8.2)
[2019-08-06 06:51] LABS: ANISOCYTOSIS 1+; MACROCYTES 1+; PLATELET ESTIMATE NORMAL; POIKILOCYTOSIS 1+
--- NOTE | 2019-08-06 07:55 | NUR ---
LOW URINE OUTPUT THIS AM
--- NOTE | 2019-08-06 08:29 | EKG ---
[place] [address] [address] [place] [address] ELECTROCARDIOGRAM REPORT Name: RADHA MALONEY Room #: 362-P ADM IN M.R.#: [id number] Admission: 08/01/19 Attend Phys: Blanca Kaufman MD Discharge: Date of : 55 Report #: [id number] THIS REPORT FOR: //name// [facility] Test Date: 2019-08-05 Test Time: 19:35:19 Pat Name: RADHA MALONEY Department: Room: 362 P Gender: F Chaser Helper: LAVELL : 1955 Requested By: Charmaine Watkins Order Number: [id number] MD: Trevin Wheatley Measurements Intervals [place] Rate: 111 P: 78 KS: 77 QRS: 35 QRSD: 53 T: 206 QT: 475 QTc: 646 Interpretive Statements Sinus tachycardia Nonspecific ST and T wave abnormality Prolonged QT interval Compared to ECG 08/02/2019 12:15:55 No significant change was found Electronically Signed On 08-06-2019 8:29:26 CDT by Trevin Wheatley [email or web address] <ELECTRONICALLY SIGNED> By: Trevin Wheatley MD, [facility] 08/06/19 0829 34 34 Trevin Wheatley MD, FAC /EPI
[2019-08-06 11:51] VITALS: BP 128/85
--- NOTE | 2019-08-06 14:17 | NUR ---
MIGUEL ANGEL reviewed chart and spoke with nursing and attending physician. Therapy has been ordered to evaluate pt. Pt refused to work with therapy, but states she will work with therapy tomorrow. Awaiting input from therapy for recommendations for discharge. MIGUEL ANGEL is following to assist as needed with dishcarge planning.
[2019-08-06 15:03] VITALS: BP 125/76
--- NOTE | 2019-08-06 15:24 | NUR ---
ASSUMED CARE OF PATIENT AT 0700. AT BEGINNING OF SHIFT NEPHROLOGY PHYSICAN MADE AWARE OF DECREASING URINE OUTPUT PAST FEW DAYS, HE SAID TO FLUSH GRAY CATHETER AND BLADDER SCAN PATIENT. BOTH INTERVENTIONS WERE DONE WITH 28 ML SCANNED IN BLADDER. HOSPITALIST IN ROOM WHEN BLADDER SCANNED AND MADE AWARE OF SITUATION WELL. PATIENT MILDLY ANXIOUS TODAY WITH BOUTS OF INCREASED ANXIETY WHEN PROVOKED. PATIENT VITALS STABLE. ROOM AIR. IV ANTIBIOTICS GIVEN.
[2019-08-06 20:25] VITALS: BP 138/88
[2019-08-07 04:10] VITALS: BP 145/93
--- NOTE | 2019-08-07 04:13 | NUR ---
PATIENT IS ALERT TO SELF TIME AND SITUATION OCCATIONALLY FORGETFUL. PATIENT HAS GRAY FOR I AND OS. PATIENT HAS LOW OUTPUT PROVIDER AWARE. PATIENT IS ON ROOM AIR. PATIENTS LBM WAS THE 15TH. PATIENT IS ACHS. PATIENT HAS A POOR APPITITE. PATIENT IS ENCOURAGED TO TAKE PO INTAKE. PATIENT IS NSR ON TELE. PATIENT IS UP TIMES 2. PATIENTS BACK PAIN IS TREATED WITH MEDICATION AND TURNS. PATIENT REFUSES TURNS. PATIENT IS RESTING COMFORTABLY IN BED. [facility].
[2019-08-07 05:38] LABS: ALBUMIN 1.3 g/dL (3.4-5.0); CALCIUM 7.7 mg/dL (8.5-10.1); CREATININE 0.6 mg/dL (0.6-1.0); PHOSPHORUS 2.6 mg/dL (2.5-4.9); POTASSIUM 3.1 mmol/L (3.5-5.1)
[2019-08-07 08:38] VITALS: BP 128/75
--- NOTE | 2019-08-07 10:33 | NUR ---
Therapy evals this morning. Pt will need rehab and is not safe to return home to her apt at this time. Will ask for an acute rehab eval and make referral to [facility]. Dc timeframe is uncertain.
[2019-08-07 10:42] VITALS: BP 126/81
[2019-08-07 15:42] VITALS: BP 139/83
--- NOTE | 2019-08-07 16:37 | NUR ---
FAXED REFERRAL TO [facility] RECEIVED CONFIRMATION AND SPOKE WITH VARUN IN ADM AND SHE WILL REVIEW. DP TO FOLLOW.
--- NOTE | 2019-08-07 16:53 | NUR ---
ASSUMED CARE OF PATIENT AT 0700. VITALS STABLE. ALERT AND ORIENTED X 2-3. SOME CONFUSION. PATIENT SEEMINGLY LESS ANXIOUS TODAY. PATIENT WENT FROM BED TO CHAIR FOR FIRST TIME SINCE ADMISSION TODAY. PATIENT RECIEVING IV ANTIBIOTICS. CONTINUING TO MONITOR.
[2019-08-07 20:35] VITALS: BP 139/94
[2019-08-08] VITALS (47 sets, daily range): BP systolic 81–132; BP diastolic 58–97
[2019-08-08 05:42] LABS: HEMOGLOBIN 10.1 gm/dL (12.0-15.0); MCH 33.9 pg (26.0-34.0); MCHC 32.5 g/dL (28.0-37.0); MCV 104.2 fL (80.0-100.0); PLATELET COUNT 303 thou/uL (150-400); RBC 2.98 mil/uL (4.20-5.00); RDW 14.4 % (10.5-14.5); WBC 16.3 thou/uL (4.0-11.0)
--- NOTE | 2019-08-08 05:50 | NUR ---
PATIENT IS ALERT AND ORIENTED. PATIENT IS ON 2LNC DUE TO INTERMINTENT SOB, CRACKELS AND WHEEZES. FLUIDS WERE DC BY PROVIDER PER CRACKLES IN THE LUNGS AND O2 STATS IN THE 80'S. PATIENT IS NSR ON TELE. PATIENTS LBM WAS THE 17TH. PATIENT HAS A GRAY FOR ACCURATE I&OS. PATIENTS PAIN IS TREATED WITH MEDS AND TURNS. PATIENT IS UP 1-2. PATIENT IS ENCOURAGED TO GET UP TO CHAIR DURING THE DAY. PATIENT IS RESTING COMFORTABLY IN BED. WMC. PATIENT IS PROGRESSING TO GOALS. POTASSIUM IS BEING REPLACED. PATIENT DOES NOT TOLERATE POTASSIUM IV WELL.
[2019-08-08 05:56] LABS: ALBUMIN 1.4 g/dL (3.4-5.0); CALCIUM 7.9 mg/dL (8.5-10.1); CREATININE 0.6 mg/dL (0.6-1.0); PHOSPHORUS 2.7 mg/dL (2.5-4.9); POTASSIUM 3.4 mmol/L (3.5-5.1)
[2019-08-08 07:53] LABS: BE(vivo) -15.4 mmol/L (-2 to +3); HCO3 10.5 mmol/L (22.0-26.0); PCO2 25.8 mmHg (35.0-45.0); PO2 58.4 mmHg (80.0-100.0); pH 7.229 (7.360-7.450); sO2 85.9 % (92.0-98.0)
[2019-08-08 08:40] LABS: ABSOLUTE NEUTROPHILS 14.5 thou/uL (1.4-8.2); PLATELET ESTIMATE NORMAL
--- NOTE | 2019-08-08 08:49 | NUR ---
PATIENT GOING DOWN TO BE PUT ON VENTILATOR DUE TO MEDICAL STATUS. OT WILL NEED NEW EVALUATION ORDERS DUE TO CHANGE IN STATUS. OT D/C
--- NOTE | 2019-08-08 10:00 | NUR ---
Pt TRANSFERRED TO ICU. WILL PLACE ON HOLD AND AWAIT NEW ORDERS TO RESUME WHEN APPROPRIATE
--- NOTE | 2019-08-08 10:08 | NUR ---
DISCHARGE PLANNING. PATIENT TRANSFERRED FROM 3W TO ICU THIS AM. UPDATED CLINICAL INFORMATION FAXED TO [facility] ADMISSIONS. CALL PLACED TO GARY TO NOTIFY AND TO UPDATE ON PATIENTS CURRENT ROOM NUMBER. UNIT SW AWARE. FOLLOWING.
--- NOTE | 2019-08-08 10:14 | NUR ---
PT is A&OX3, but pt starts SOB and fast, and labored breathing about 0730am, RN has called METAPHYSICS TEACHER, DRs have come to see pt,after apply BIPAP O2 50%,and lasix 80mg iv , pt's HR has improved, but pt 's RR still is 35-45 with BIPAP, RN has reveived order to transfer pt to ICU, RN has called pt's family about pt's condition and to ICU at 0930am, RN has giving report at bedside.
--- NOTE | 2019-08-08 10:27 | NUR ---
VASCULAR ACCESS CONSULTED FOR CENTRAL LINE BY DR NOVOA, PT'S LABS,MEDS,HISTORY ORDER,CONSENT VERIFIED. DISCUSSED WITH DR NOVOA PICC APPROVED, PT UNABLE TO LAY FLAT FOR CVAD. DISCUSSED BENEFITS AND RISK OF PICC WITH PT AND FAMILY VERBALIZED UNDERSTANDING. SAMIA BRACHIAL WAS WIDELY PATENT WITH USG, 5FR TL POWER PICC TRIMMED TO 42CM INSERTED TO 1CM PER HOSPITAL P&P. PT TOLERATED WELL. STAT CXR ORDERED.
--- NOTE | 2019-08-08 10:41 | NUR ---
CXR CONFIRMED PLACEMENT CAJ, PICC RELEASED FOR IMMEDIATE USE TO SWETHA EVANS PER PROTOCOL
[2019-08-08 12:28] LABS: BE(vivo) -7.1 mmol/L (-2 to +3); HCO3 14.9 mmol/L (22.0-26.0); PO2 60.2 mmHg (80.0-100.0); pH 7.466 (7.360-7.450); sO2 93.1 % (92.0-98.0)
[2019-08-08 12:29] LABS: PCO2 21.1 mmHg (35.0-45.0)
--- NOTE | 2019-08-08 13:16 | NUR ---
PT TX FROM 3W AT 0940. PLAN TO INTUBATE AFTER SPEAKING WITH DR NOVOA. IV DISLODGED DURING TX. IV TEAM PLACED RT PICC LINE. DPOA PAPERWORK SIGNED WITH ESTEPHANIE PACHECO. PT REQUESTED TO BE LEFT ALONE AND REFUSED INTUBATION AND BIPAP
--- NOTE | 2019-08-08 16:22 | NUR ---
PT TRANSFERRED TO ICU TODAY WITH RESP FAILURE AND WAS INTUBATED. PT WAS ABLE TO COMPLETE DPOA PAPERWORK PRIOR TO INTUBATION NAMING HER DTR JB AGENT AND SON LUCY ALTERNATE. COPY OF DOCUMENT IN CHART. DC PLAN HAD BEEN ACUTE REHAB AT EITHER [facility] OR [facility].
[2019-08-08 16:25] LABS: BE(vivo) -6.1 mmol/L (-2 to +3); HCO3 15.8 mmol/L (22.0-26.0); pH 7.464 (7.360-7.450); sO2 97.2 % (92.0-98.0)
[2019-08-08 16:27] LABS: PCO2 22.5 mmHg (35.0-45.0)
--- NOTE | 2019-08-08 17:13 | NUR ---
PATIENT WAS TRANSFERRED TO ICU AND WAS INTUBATED. ST WILL AWAIT NEW ORDERS
--- NOTE | 2019-08-08 22:04 | NUR ---
CALL REPORT TO REGARDING OF CT SCAN RESULT AND CLARIFIED SOLUMEDROL ORDER.
[2019-08-09] VITALS (47 sets, daily range): BP systolic 86–105; BP diastolic 61–79
[2019-08-09 05:27] LABS: ALBUMIN 1.3 g/dL (3.4-5.0); CALCIUM 7.6 mg/dL (8.5-10.1); CREATININE 0.6 mg/dL (0.6-1.0); PHOSPHORUS 3.1 mg/dL (2.5-4.9)
[2019-08-09 05:29] LABS: POTASSIUM 3.3 mmol/L (3.5-5.1)
[2019-08-09 08:41] LABS: HEMATOCRIT 28.5 % (37.0-47.0); HEMOGLOBIN 9.5 gm/dL (12.0-15.0); MCH 34.8 pg (26.0-34.0); MCHC 33.3 g/dL (28.0-37.0); MCV 104.4 fL (80.0-100.0); RBC 2.73 mil/uL (4.20-5.00); RDW 14.2 % (10.5-14.5); WBC 14.3 thou/uL (4.0-11.0)
[2019-08-09 08:46] LABS: BE(vivo) -8.5 mmol/L (-2 to +3); HCO3 14.5 mmol/L (22.0-26.0); PO2 155.8 mmHg (80.0-100.0); pH 7.416 (7.360-7.450); sO2 99.1 % (92.0-98.0)
[2019-08-09 11:55] LABS: % SATURATION 63 % (20-39); IRON 45 ug/dL (50-170); TIBC 71 ug/dL (250-450)
[2019-08-09 12:23] LABS: FOLIC ACID 9.1 ng/mL (8.6-58.9)
[2019-08-09 13:30] LABS: PCO2 23.1 mmHg (35.0-45.0)
--- NOTE | 2019-08-09 15:03 | NUR ---
ASSUMED CARE OF PT AT 0645. PLAN TO REST ON VENT TODAY, NO WEANING TRIAL. PT WAKES ON SEDTION. FRIENDS AT BEDSIDE. ELECTROLYTE REPLACEMENT. LITTLE PROGRESS TOWARD PLAN OF CARE.
[2019-08-10] VITALS (47 sets, daily range): BP systolic 91–120; BP diastolic 59–84
--- NOTE | 2019-08-10 05:31 | NUR ---
No event tonight. Pt remains stable in this shift. Temp Max 99.6 F, BP stable. She had 700 cc of urine output after IV lasix. Family visited last night ,update POCS to them. Continue to monitor her closely.
[2019-08-10 05:46] LABS: HEMATOCRIT 26.4 % (37.0-47.0); HEMOGLOBIN 8.8 gm/dL (12.0-15.0); MCH 34.9 pg (26.0-34.0); MCHC 33.3 g/dL (28.0-37.0); MCV 104.8 fL (80.0-100.0); RBC 2.52 mil/uL (4.20-5.00); RDW 13.9 % (10.5-14.5); WBC 10.3 thou/uL (4.0-11.0)
[2019-08-10 06:07] LABS: CALCIUM 7.8 mg/dL (8.5-10.1); CREATININE 0.7 mg/dL (0.6-1.0); POTASSIUM 3.6 mmol/L (3.5-5.1)
[2019-08-10 06:11] LABS: ALBUMIN 1.5 g/dL (3.4-5.0); CALCIUM 7.8 mg/dL (8.5-10.1); CREATININE 0.7 mg/dL (0.6-1.0); PHOSPHORUS 2.7 mg/dL (2.5-4.9); POTASSIUM 3.6 mmol/L (3.5-5.1)
[2019-08-10 11:21] LABS: BE(vivo) -7.1 mmol/L (-2 to +3); HCO3 16.6 mmol/L (22.0-26.0); PCO2 27.6 mmHg (35.0-45.0); pH 7.398 (7.360-7.450); sO2 89.8 % (92.0-98.0)
[2019-08-10 18:35] LABS: URINE BILIRUBIN 1+ (Negative); URINE BLOOD NEGATIVE (Negative); URINE CLARITY CLEAR; URINE COLOR YELLOW; URINE GLUCOSE-RANDOM* NEGATIVE (Negative); URINE KETONES NEGATIVE (Negative); URINE LEUKOCYTES NEGATIVE (Negative); URINE NITRITE NEGATIVE (Negative); URINE PROTEIN (DIPSTICK) 1+ (Negative); URINE SPECIFIC GRAVITY >= 1.030 (1.005-1.035); URINE UROBILINOGEN 0.2 E.U./dl (0.2-1.0)
[2019-08-10 18:37] LABS: ICTOTEST (BILI CONFIRMATORY) Positive (Negative)
--- NOTE | 2019-08-10 18:44 | NUR ---
Patient remains intubated/ventilated and sedated. FSC with reinforcement with light sedation. VSS, see flowsheet; afebrile, BP stable MAPs WDL. Respirations easy and unlabored; tolerated CPAP trial. Ventilator settings adjusted; tolerating current settings. Sinus rhythm on telemetry. Remains NPO. TF initiated with goal rate goal 60 ml/hr, no residual. Mckeon output patent to gravity; urine adequate but diminished; watchful. Family updated on current plan of care/Tx/Rx. Continued progression towards current plan of care goals. No acute events to report.
[2019-08-10 18:48] LABS: CASTS None Seen /LPF (None Seen); SQUAMOUS 4-10 Moderate /LPF (0-3)
[2019-08-10 18:50] LABS: CRYSTALS None Seen /LPF (None Seen); URINE POTASSIUM-RANDOM* 70.5 mmol/L; URINE RBC None Seen /HPF (0-2); URINE WBC 0-5 Rare /HPF (0-5); YEAST Present (None Seen)
[2019-08-10 18:51] LABS: BACTERIA 1-9 Few /HPF (None Seen)
[2019-08-11] VITALS (24 sets, daily range): BP systolic 100–131; BP diastolic 65–87
--- NOTE | 2019-08-11 05:07 | NUR ---
PT SEDATED ON VENT. ABLE TO FOLLOW COMMANDS DURING SEDATION VACATION AT 2039 DURING THE SHIFT. NO APPARENT PAIN, AND PT DENIED PAIN. VSS, AFEBRILE. WILL CONTINUE TO MONITOR
[2019-08-11 05:10] LABS: BE(vivo) -5.4 mmol/L (-2 to +3); HCO3 18.1 mmol/L (22.0-26.0); PCO2 28.6 mmHg (35.0-45.0); pH 7.418 (7.360-7.450); sO2 98.8 % (92.0-98.0)
[2019-08-11 05:54] LABS: HEMOGLOBIN 8.7 gm/dL (12.0-15.0)
[2019-08-11 05:58] LABS: MCH 35.7 pg (26.0-34.0); MCHC 34.8 g/dL (28.0-37.0); MCV 102.8 fL (80.0-100.0); RBC 2.43 mil/uL (4.20-5.00); RDW 14.3 % (10.5-14.5)
[2019-08-11 06:05] LABS: CALCIUM 7.8 mg/dL (8.5-10.1); CREATININE 0.8 mg/dL (0.6-1.0); POTASSIUM 3.2 mmol/L (3.5-5.1)
--- NOTE | 2019-08-11 08:45 | EKG ---
[place] [address] [address] [place] [address] ELECTROCARDIOGRAM REPORT Name: RADHA MALONEY Room #: 244-P ADM IN M.R.#: [id number] Admission: 08/01/19 Attend Phys: Blanca Kaufman MD Discharge: Date of : 55 Report #: [id number] THIS REPORT FOR: //name// [facility] Test Date: 2019-08-08 Test Time: 08:14:51 Pat Name: RADHA MALONEY Department: Room: 244 Gender: F Mat Inspector: ARNULFO : 1955 Requested By: Fadi Silva Order Number: [id number] MD: Trevin Wheatley Measurements Intervals [place] Rate: 123 P: 81 IA: 110 QRS: 31 QRSD: 84 T: 252 QT: 423 QTc: 606 Interpretive Statements Sinus tachycardia Low voltage, extremity leads Nonspecific T abnrm, anterolateral leads Prolonged QT interval Compared to ECG 08/05/2019 19:35:19 [address]ons[address] change in the ST and T-wave segments Electronically Signed On 08-11-2019 8:45:14 CDT by Trevin Wheatley [email or web address] <ELECTRONICALLY SIGNED> By: Trevin Wheatley MD, [facility] 08/11/19 0845 3 Trevin Wheatley MD, [facility] /EPI
--- NOTE | 2019-08-11 14:54 | NUR ---
FOLLOWING FOR DC PLANNING. CLINICAL INFO REVIEWED. ACUTE RESP FAILURE/MET ENCEPHALOPATHY, ON VENT AND SEDATED. PCXR CONCERNING FOR RIGHT PNEUMONIA, NOT READY TO WEAN. DCP [facility] PRIOR TO ICU TRANSFER ACUTE REHAB AT [facility] FROM EACH FACILITY UPDATED TODAY.
--- NOTE | 2019-08-11 18:21 | NUR ---
ASSUMED CARE OF PT AT 0645. NO PLAN TO WEAN FROM VENT TODAY. STARTED IV LASIX WITH 1825 OUTPUT FOR SHIFT. ADVANCED TUBEFEED, ALMOST TO GOAL, START WATER FLUSHES. BM X2. REPLACE POTASSIUM X2BAGS WITH LITTLE INCREASE, TREATING AGAIN PER PROTOCOL. NO FAMILY AT BEDSIDE.
[2019-08-12] VITALS (22 sets, daily range): BP systolic 103–133; BP diastolic 67–86
[2019-08-12 05:08] LABS: ALBUMIN 1.8 g/dL (3.4-5.0); CALCIUM 7.9 mg/dL (8.5-10.1); CREATININE 0.8 mg/dL (0.6-1.0); PHOSPHORUS 2.3 mg/dL (2.5-4.9); POTASSIUM 3.8 mmol/L (3.5-5.1)
--- NOTE | 2019-08-12 08:39 | HC ---
[facility] [place] [address] CONSULTATION Name: RADHA MALONEY Room #: 244-P [facility] IN M.R.#: [id number] Admission: 08/01/19 Attend Phys: Blanca Kaufman MD Discharge: Date of : 55 Report #: [id number] THIS REPORT FOR: //name// CC: HEIKE physician/PCP Blanca Kaufman REASON FOR PRESENTATION: Mental status issues. REASON FOR CONSULTATION: Hyponatremia. HISTORY OF PRESENT ILLNESS: This is obtained from the medical chart. 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 She is not able to provide me with any details. She presented after a fall. Apparently, she has history of alcohol abuse. The patient's sodium on presentation was on the low side. The patient was recently discharged from the hospital after being treated for alcohol-related issues. She is not known to have any previous issues with her sodium. No changes in the medications. The patient had developed hypoglycemia and was started on D5 saline and this has complicated her hyponatremia with sodium coming down from 125 on presentation to 123 as of yesterday mandating a Nephrology consultation. PAST MEDICAL HISTORY: 1. Alberto syndrome. 2. Alcohol abuse. FAMILY HISTORY: Unobtainable given the patient's mental status. SOCIAL HISTORY: Unobtainable given the patient's medical status; however, it is reported that she continues to smoke and use alcohol. REVIEW OF SYSTEMS: Unobtainable given the patient's mental status. MEDICATIONS: Listed amongst her home medications; 1. Gabapentin. 2. Meclizine. 3. Pantoprazole. 4. Thiamine. PHYSICAL EXAMINATION: GENERAL: She is confused, tremulous. VITAL SIGNS: Temperature is 37.1, blood pressure is 126/85. HEAD AND NECK: No jugular venous distention. CHEST: No crackles. CARDIOVASCULAR: No rub. ABDOMEN: Soft, nontender. LOWER EXTREMITIES: No edema. [facility] [address] [place] [address] CONSULTATION Name: RADHA MALONEY Room #: [facility] IN [facility]#: [id number] Admission: 08/01/19 Attend Phys: Blanca Kaufman MD Discharge: Date of : 55 Report #: [id number] LABORATORY VALUES: Reviewed. White blood cell count is up to 21.4. Chemistry from today is pending, but yesterday's chemistry revealed a sodium of 123, a potassium of 3, a BUN of 4 and a creatinine of 0.6. IMPRESSION: 1. Hyponatremia. 2. Alcohol abuse. 3. Leukocytosis. 4. Encephalopathy. 5. Hypokalemia. PLAN: 1. The patient constellation of electrolyte issues are related to alcohol abuse. 2. Discontinue IV fluid. 3. Encourage solid intake orally. 4. Alcohol withdrawal precautions. 5. Workup for her leukocytosis. 6. Hold any IV fluid at this point. 7. We will continue to follow. <ELECTRONICALLY SIGNED> By: Maksim Galvan MD 08/12/19 0839 0824 49 Maksim Galvan MD /nt
[2019-08-12 11:53] LABS: BE(vivo) -3.5 mmol/L (-2 to +3); HCO3 20.2 mmol/L (22.0-26.0); PCO2 31.8 mmHg (35.0-45.0); PO2 139.7 mmHg (80.0-100.0); pH 7.421 (7.360-7.450); sO2 98.9 % (92.0-98.0)
--- NOTE | 2019-08-12 13:50 | NUR ---
ASSUMED CARE @ 0700 08/12/19, PT PLACED ON CPAP @ 1020, ABG'S DRAWN AND REPORTED TO DR NOVOA, PT LASTED ON CPAP FOR OVER 3 HOURS, VS STABLE, RN GIVEN ORDER BY DR NOVOA TO TELL RT TO EXTUBATE.
[2019-08-13] VITALS (24 sets, daily range): BP systolic 119–138; BP diastolic 73–88
[2019-08-13 06:39] LABS: CALCIUM 8.3 mg/dL (8.5-10.1); CREATININE 0.7 mg/dL (0.6-1.0); PHOSPHORUS 2.5 mg/dL (2.5-4.9); POTASSIUM 3.4 mmol/L (3.5-5.1)
--- NOTE | 2019-08-13 09:47 | NUR ---
ACUTE REHAB CONTINUING TO FOLLOW PATIENT. SPOKE WITH ARCHITECT INTERN ABOUT GETTING NEW ORDERS FOR THERAPY TO RESUME TREATMENT. WILL AWAIT NEW NOTES FROM REHAB TO SEE PATIENT'S FUNCTIONAL LEVEL. ADMISSION TO REHAB/5N WILL ALSO DEPEND UPON BED AVAILABILTIY. THANK YOU FOR THIS REFERRAL.
--- NOTE | 2019-08-13 15:19 | NUR ---
PT WAS EXTUBATED YESTERDAY RN CM UPDATED ACUTE REHABS FOLLOWING PT. WE ARE AWAITING THERAPIES TO RE EVAL TO SEND UPDATES TO ACUTE REHABS FOR REVIEW. CM TO FOLLOW INDICATED WITH DC PLANNING.
--- NOTE | 2019-08-13 19:44 | NUR ---
CALLED DR. ARANA, RE DIET AND TRANSFER ORDERS.
--- NOTE | 2019-08-13 23:09 | NUR ---
PT TRANSFERRING TO ROOM 214. REPORT CALLED TO CRISTINA IBRAHIM. DAUGHTER, MINGO, NOTIFIED OF TRANSFER.
--- NOTE | 2019-08-14 04:42 | NUR ---
PATIENTS CARES WERE ASSUMED AFTER A TRANSFER FROM ICU. PATIENT APPERS TO BE VERY DROWSEY/. SHE WILL OPEN HER EYES ON COMMAND. FOLLOWS DIRECTION, HOWEVER SHE IS VERY SLEEPY. HOURLY ROUNDING WAS DONE. THE BED IS IN A LOW AND LOCKED POSITION.
[2019-08-14 06:20] LABS: HEMATOCRIT 26.5 % (37.0-47.0); HEMOGLOBIN 9.2 gm/dL (12.0-15.0); MCH 35.6 pg (26.0-34.0); MCHC 34.7 g/dL (28.0-37.0); MCV 102.8 fL (80.0-100.0); RBC 2.57 mil/uL (4.20-5.00); RDW 14.4 % (10.5-14.5); WBC 10.1 thou/uL (4.0-11.0)
[2019-08-14 06:33] LABS: CALCIUM 8.5 mg/dL (8.5-10.1); CREATININE 0.8 mg/dL (0.6-1.0); POTASSIUM 3.2 mmol/L (3.5-5.1)
[2019-08-14 08:35] VITALS: BP 131/74
[2019-08-14 12:25] VITALS: BP 129/78
--- NOTE | 2019-08-14 14:41 | NUR ---
Antique Clock Repairer visited with the pt at bedside and her dtr Elisha via phone regarding dc plannning and rehab recommendations. Awaiting therapies to reeval for possible 5N, [facility] or [facility] acute rehab stay at dc. All three are following. Pt and dtr agreeable pending acceptance and bed availability. Dtr reports that she is concerned about the pt's apt as it has a flight of stairs to enter. She is working with her brother so they can have family stay with her once she is out of rehab. Encouragment givent to talk with the landlord about other apt options. Pt and family's goal is for her to return home indep. She used a cane prior to admissions and had some issues with vertigo. Pt's dtr is hopeful as the pt has had old strokes and was able to have a full recovery. Will follow.
--- NOTE | 2019-08-14 15:25 | NUR ---
FAXED CLINICAL UPDATE TO [facility] RECEIVED CONFIRMATION AND LEFT MSG WITH VARUN IN ADM.
[2019-08-14 16:10] VITALS: BP 126/72
--- NOTE | 2019-08-14 18:08 | NUR ---
SOMNOLENT, BUT WAKES READILY. SLOW OR GRUNTING RESPONSE UNLESS ONE ASKS HER ABOUT SOMETHING SHE CARES ABOUT; THEN SHE RESPONDS QUICKLY AND APPROPRIATELY. WIDE, REGULAR COMPLEXES PER TELE. VOIDING PER BSC FOR I&O. ANTIBIOTICS ORDERED. POOR ORAL INTAKE DESPITE PROMPTING. FALL PRECAUTIONS IN PLACE. FREQUENT CHECKS; WILL CONTINUE TO MONITOR.
[2019-08-14 21:07] VITALS: BP 124/78
[2019-08-15 04:44] VITALS: BP 134/76
--- NOTE | 2019-08-15 05:05 | NUR ---
patients cares were assumed at shift change. patient c, patient has had a sussfull nights rest. patient had hourly rounding. bed alarm is on. will continue to monitor.
[2019-08-15 07:19] VITALS: BP 128/78
[2019-08-15 11:39] VITALS: BP 129/85
--- NOTE | 2019-08-15 14:30 | NUR ---
5N is full and no bed available. [facility] has accepted the pt and would have a bed available this weekend if medically cleared. They are working on insurance auth. Cdiff pending. Pt, dtr and care team updated. [phone] to make arrangements and get numbers for faxing orders and giving report. Staff will also need to confirm with the pt's dtr Elisha. Chart copy and orders will need to be sent. May need stretcher van transport.
[2019-08-15 15:25] VITALS: BP 128/76
--- NOTE | 2019-08-15 18:00 | NUR ---
Liquid stools x 3 today. Stool sent for C-Diff. Pt placed in isolation until results known.
[2019-08-15 20:43] VITALS: BP 131/75
[2019-08-16 04:28] VITALS: BP 132/69
--- NOTE | 2019-08-16 05:55 | NUR ---
PT A&O X4 ABLE TO MAKE BASIC NEEDS KNOWN. DENIES PAIN SO FAR THIS SHIFT. MAX ASSIST WITH TRANSFERS. CONT ON ISO FOR C-DIFF. PT HAS A GRAY CATHETER DRAINS W/O DIFFICULTIES. VSS.
[2019-08-16 08:13] VITALS: BP 157/87
[2019-08-16 11:57] VITALS: BP 151/79
[2019-08-16] MEDS ORDERED: LEVAQUIN 500 M500 M7 PO (13:44)
[2019-08-16] MEDS ORDERED: MUCINEX DM ER1 EAC1 PO (13:44)
[2019-08-16] MEDS ORDERED: LASIX 40 MG TAB40 M2 PO (13:44)
[2019-08-16 16:16] VITALS: BP 127/64
--- NOTE | 2019-08-16 18:15 | NUR ---
ASSUMED CARE OF PT SHIFT CHANGE. ASSESSMENTS CHARTED. MEDS GIVEN PER DEC. VSS. A&OX4. PT ON RA. ISAAC IN PLACE. PT IS MAX ASSIST. USES THE BEDPAN. CDIFF TEST WAS CANCELLED THE PT HAD SOFT STOOLS. DC ORDERS COMPLETED. TELE D/C'ED. ALL BELONGINGS WERE TAKEN BY DAUGHTER WHILE MEDIC TUTOR TRANSJPORTED HER TO FACILITY. CHART COPY SENT WITH TRANSPORT.
== END 2019-08-16 19:36 | DRG 871 ==
LOC: ER 13:36 → 2N 16:13 → EROBS 16:13 → 3W 18:27 → ICU 08-08 09:39 → 2N 08-13 23:57
PROVIDERS: Emergency Medicine; Hospitalist; Internal Medicine; Nurse Practitioner Acute Care; Pediatrics; Specialist; ADMIT Internal Medicine
DX: A41.50 Gram-negative sepsis, unspecified (principal); J69.0 Pneumonitis due to inhalation of food and vomit; G92 Toxic encephalopathy; J96.01 Acute respiratory failure with hypoxia; J15.6 Pneumonia due to other Gram-negative bacteria; N39.0 Urinary tract infection, site not specified; M62.82 Rhabdomyolysis; E87.1 Hypo-osmolality and hyponatremia; F10.230 Alcohol dependence with withdrawal, uncomplicated; E87.2 Acidosis; E46 Unspecified protein-calorie malnutrition; H16.3 Interstitial and deep keratitis; G62.9 Polyneuropathy, unspecified; F17.210 Nicotine dependence, cigarettes, uncomplicated; E87.6 Hypokalemia; R07.9 Chest pain, unspecified; D72.829 Elevated white blood cell count, unspecified; I10 Essential (primary) hypertension; I95.9 Hypotension, unspecified; F80.82 Social pragmatic communication disorder; E83.42 Hypomagnesemia; K70.10 Alcoholic hepatitis without ascites; I08.1 Rheumatic disorders of both mitral and tricuspid valves; D63.8 Anemia in other chronic diseases classified elsewhere; Z79.899 Other long term (current) drug therapy; Z86.73 Personal history of transient ischemic attack (TIA), and cerebral infarction without residual deficits; Z68.28 Body mass index [BMI] 28.0-28.9, adult
CPT/HCPCS: 10078; 10081; 10879; 27000

== ENCOUNTER 2019-10-30 20:53 | Emergency (ER) | payer OTHER ==
[~2019-10-30] VITALS: Ht 165.1 cm; Wt 61.2 kg
[~2019-10-30 20:53] MED LIST changes: +LASIX 40 MG TAB40 M2 PO; +LEVAQUIN 500 M500 M7 PO; +MUCINEX DM ER1 EAC1 PO
[2019-10-30 22:55] LABS: BASOPHILS 0.7 % (0.0-2.0); EOSINOPHILS 3.1 % (0.0-3.0); HEMATOCRIT 34.8 % (37.0-47.0); HEMOGLOBIN 11.3 gm/dL (12.0-15.0); LYMPHOCYTES 29.7 % (24.0-44.0); MCH 31.9 pg (26.0-34.0); MCHC 32.6 g/dL (28.0-37.0); MCV 98.1 fL (80.0-100.0); MONOCYTES 7.4 % (1.0-8.0); PLATELET COUNT 375 thou/uL (150-400); POLYS 59.1 % (36.0-66.0); RBC 3.55 mil/uL (4.20-5.00); RDW 14.7 % (10.5-14.5); WBC 8.5 thou/uL (4.0-11.0)
[2019-10-30 23:11] LABS: CALCIUM 9.2 mg/dL (8.5-10.1); CREATININE 0.4 mg/dL (0.6-1.0)
[2019-10-30 23:18] LABS: TOTAL BILIRUBIN 0.6 mg/dL (<0.1-1.0); TOTAL PROTEIN 6.9 g/dL (6.4-8.2)
[2019-10-31 00:07] VITALS: BP 167/84
--- NOTE | 2019-10-31 14:25 | EKG ---
[place] [address] 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: GAL : 1955 Requested By: Terrie Ruiz Order Number: [id number] MD: Harrison Scruggs Measurements Intervals [place] Rate: 63 P: -17 TX: 137 QRS: 8 QRSD: 88 T: 35 QT: 483 QTc: 495 Interpretive Statements Sinus rhythm Compared to ECG 08/08/2019 08:14:51 Sinus tachycardia no longer present Electronically Signed On 10-31-2019 14:24:57 [employer] by Harrison Scruggs [email or web address] <ELECTRONICALLY SIGNED> By: Harrison Scruggs MD 10/31/19 1424 [address] [facility] MD BEBE Schilling
== END 2019-10-31 00:09 | disposition home or self-care (01) ==
LOC: ER 20:53
PROVIDERS: Nurse Practitioner
DX: R51 Headache (principal); R10.11 Right upper quadrant pain; G62.9 Polyneuropathy, unspecified; F17.210 Nicotine dependence, cigarettes, uncomplicated

== ENCOUNTER → 2021-11-30 | Emergency (ER) | payer OTHER ==
[~2021-11-30] VITALS: Ht 165.1 cm; Wt 56.7 kg
[2021-11-30 18:58] LABS: ABSOLUTE NEUTROPHILS 10.3 thou/uL (1.4-8.2); BASOPHILS 0.5 % (0.0-2.0); EOSINOPHILS 0.2 % (0.0-3.0); HEMATOCRIT 42.4 % (37.0-47.0); HEMOGLOBIN 14.6 gm/dL (12.0-15.0); LYMPHOCYTES 12.8 % (24.0-44.0); MCH 33.9 pg (26.0-34.0); MCHC 34.4 g/dL (28.0-37.0); MCV 98.6 fL (80.0-100.0); MONOCYTES 6.3 % (1.0-8.0); PLATELET COUNT 205 thou/uL (150-400); POLYS 80.2 % (36.0-66.0); RDW 14.2 % (10.5-14.5); WBC 12.9 thou/uL (4.0-11.0)
[2021-11-30 19:21] LABS: CALCIUM 9.4 mg/dL (8.5-10.1); CREATININE 0.6 mg/dL (0.6-1.0); POTASSIUM 3.1 mmol/L (3.5-5.1)
[2021-11-30 19:27] LABS: ALBUMIN 3.1 g/dL (3.4-5.0); DIRECT BILIRUBIN 0.3 mg/dL (<0.1-0.2); TOTAL BILIRUBIN 0.9 mg/dL (0.2-1.0); TOTAL PROTEIN 7.6 g/dL (6.4-8.2)
[2021-11-30 20:21] VITALS: BP 00/00
== END ==
LOC: ER 18:24
PROVIDERS: Emergency Medicine
DX: R10.9 Unspecified abdominal pain (principal); F10.10 Alcohol abuse, uncomplicated; G62.9 Polyneuropathy, unspecified; F17.210 Nicotine dependence, cigarettes, uncomplicated; Z79.891 Long term (current) use of opiate analgesic; Z79.899 Other long term (current) drug therapy; Z79.1 Long term (current) use of non-steroidal anti-inflammatories (NSAID); Z91.041 Radiographic dye allergy status

== ENCOUNTER 2021-12-06 06:23 | Inpatient (IN) | payer OTHER ==
[~2021-12-06] VITALS: Ht 165.1 cm; Wt 64.9 kg
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
[2021-12-06 06:30] VITALS: BP 156/76
[2021-12-06 06:52] LABS: HEMATOCRIT 42.3 % (37.0-47.0); HEMOGLOBIN 14.9 gm/dL (12.0-15.0); MCH 34.6 pg (26.0-34.0); MCHC 35.1 g/dL (28.0-37.0); MCV 98.4 fL (80.0-100.0); RBC 4.3 mil/uL (4.20-5.00); RDW 13.9 % (10.5-14.5); WBC 10.1 thou/uL (4.0-11.0)
[2021-12-06 08:14] LABS: ALBUMIN 3.1 g/dL (3.4-5.0); CALCIUM 9.7 mg/dL (8.5-10.1); CREATININE 0.9 mg/dL (0.6-1.0); TOTAL BILIRUBIN 0.4 mg/dL (0.2-1.0); TOTAL PROTEIN 7.8 g/dL (6.4-8.2)
[2021-12-06 08:15] LABS: POTASSIUM 2.7 mmol/L (3.5-5.1)
[2021-12-06 16:00] VITALS: BP 159/77
[2021-12-06 21:20] VITALS: BP 114/68
[2021-12-06 21:51] VITALS: BP 143/87
[2021-12-07 05:27] LABS: HEMATOCRIT 36.7 % (37.0-47.0); MCH 34.2 pg (26.0-34.0); MCHC 34.3 g/dL (28.0-37.0); MCV 99.7 fL (80.0-100.0); RBC 3.68 mil/uL (4.20-5.00); RDW 13.9 % (10.5-14.5); WBC 9.9 thou/uL (4.0-11.0)
[2021-12-07 05:39] LABS: HEMOGLOBIN 12.6 gm/dL (12.0-15.0)
--- NOTE | 2021-12-07 06:03 | NUR ---
RECEIVED CARE OF THIS PATIENT AT 2130 FROM ED VIA CART ACCOMPANIED ED PERSONEL. PATIENT ALERT AND ORIENTED X4. IV IN LAC PATENT WITH FLUIDS INFUSING. C/P PAIN, MED GIVEN. NPO X SIPS WITH MEDS. SLEPT OFF AND ON DURING NIGHT.
[2021-12-07 06:16] LABS: ALBUMIN 2.5 g/dL (3.4-5.0); CALCIUM 8.6 mg/dL (8.5-10.1); CREATININE 0.7 mg/dL (0.6-1.0); MAGNESIUM 1.8 mg/dL (1.8-2.4); PHOSPHORUS 3.1 mg/dL (2.5-4.9)
[2021-12-07 06:28] LABS: POTASSIUM 2.7 mmol/L (3.5-5.1)
[2021-12-07 07:48] VITALS: BP 143/76
--- NOTE | 2021-12-07 12:27 | NUR ---
ASSUMED CARE OF PATIENT IN THE AM. PATIENT LYING WITH EYES CLOSED IN BED. ON ASSESSMENT PATIENT COMPLAING OF PAIN 07/01. "THE PAIN MEDICATION ISN'T WORKING FOR A LONG ENOUGH TIME" PATIENTS COMPLAINT. PATIENTS K+ BEING REPLACED BY IV AND PO INTAKE. PATIENT AT THIS TIME NPO EXPECT ICE CHIPS AND SIPS OF WATER.
[2021-12-07 15:18] VITALS: BP 119/79
[2021-12-07 20:00] VITALS: BP 131/67
--- NOTE | 2021-12-08 04:59 | NUR ---
ASSUMED CARE OF PT AT 1900, PT FAMILY AT BEDSIDE. PT AND FAMILY WERE AGITATED THAT PT WAS NOT PROVIDED WITH ICE CHIPS. ICE CHIPS AND CHAPSTICK PROVIDED. PT REPORTED 8/10 PAIN TO LOWER ABD- PT REPORTS "THOSE PAIN MEDS DONT WORK. THEY HAVNET WORKED SINCE ALF BEEN HERE". NIGHT SOFA BACK UPHOLSTERER NOTIFIED OF PAIN MANAGEMENT CONVERNS, NO NEW ORDERS. PT HAS BEEN SLEEPING BETWEEN PRN MED DOSES. VSS, NO ACUTE MEDICAL EVENTS
[2021-12-08 05:19] LABS: CALCIUM 8.2 mg/dL (8.5-10.1); CREATININE 0.6 mg/dL (0.6-1.0); MAGNESIUM 1.6 mg/dL (1.8-2.4)
[2021-12-08 05:28] LABS: ABSOLUTE NEUTROPHILS 8.2 thou/uL (1.4-8.2); BASOPHILS 0.4 % (0.0-2.0); EOSINOPHILS 0.3 % (0.0-3.0); HEMATOCRIT 36.1 % (37.0-47.0); HEMOGLOBIN 12.2 gm/dL (12.0-15.0); LYMPHOCYTES 13.8 % (24.0-44.0); MCHC 33.8 g/dL (28.0-37.0); MCV 100.5 fL (80.0-100.0); MONOCYTES 8.8 % (1.0-8.0); PLATELET COUNT 259 thou/uL (150-400); POLYS 76.7 % (36.0-66.0); RDW 13.9 % (10.5-14.5); WBC 10.7 thou/uL (4.0-11.0)
[2021-12-08 05:39] LABS: POTASSIUM 4.6 mmol/L (3.5-5.1)
[2021-12-08 08:00] VITALS: BP 117/60
--- NOTE | 2021-12-08 17:54 | NUR ---
PATIENT LAYING IN BED WITH EYES CLOSED NO COMPLAINTS OF N/V AND PAIN HAS BEEN DECREASED SIGNIFICANTLY SINCE PATIENT HAD BOWL MOVEMENT TODAY. IV WAS REPLACED IN RIGHT FOREARM. PATIENT WALKING WITH STANDBY ASSIST TO BATHROOM
[2021-12-08 19:05] VITALS: BP 153/94
--- NOTE | 2021-12-09 06:29 | NUR ---
PT UAL IN THE ROOM OVERNIGHT. MULTIPLE UNMEASURED VOIDS, PT UNABLE TO UTILIZE URINE COLLECTION HAT. PAIN WELL CONTROLLED WITHOUT PRN MEDICATION. IV INFULTRATED THIS AM- PT REFUSED REPLACEMENT OF IV AT THIS TIME. SEE CHARTTING FOR OTHER ASSESSMENT DETAILS
--- NOTE | 2021-12-09 07:34 | NUR ---
ASSUMED CARE OF PATIENT THIS AM. PATIENT IS LAYING QUIETLY WITH EYES CLOSED IN BED. PER REPORT IV INFILTRATED EARLY THIS AM, AND PATIENT REFUSING TO ALLOW RN TO REPLACE. WILL TRY TO REPLACE AGAIN THIS AM AND WILL NOTIFY PHYSICIAN.
[2021-12-09 08:05] VITALS: BP 135/802
[2021-12-09 11:30] VITALS: BP 135/68
--- NOTE | 2021-12-09 11:49 | NUR ---
VAT CONSULTED FOR MIDLINE PLACEMENT. DISCUSSED BENEFITS AND RISK OF ML, VERBALIZED UNDERSTANDING. SAMIA BASILIC WAS WIDELY PATENTWITH USG. 4FR POWER MIDLINE TRIMMED TO 14CM INSERTED TO 0CM,+BR/FLUSH. PT TOLERATED WELL. RELEASED FOR IMMEDIATE USE PER PROTOCOL.
[2021-12-09 20:14] VITALS: BP 133/83
[2021-12-10 05:37] LABS: HEMATOCRIT 35.2 % (37.0-47.0); HEMOGLOBIN 12.1 gm/dL (12.0-15.0); MCH 34.4 pg (26.0-34.0); MCHC 34.4 g/dL (28.0-37.0); MCV 99.9 fL (80.0-100.0); RBC 3.53 mil/uL (4.20-5.00); RDW 13.8 % (10.5-14.5); WBC 9.4 thou/uL (4.0-11.0)
[2021-12-10 05:51] LABS: CALCIUM 8.3 mg/dL (8.5-10.1); CREATININE 0.6 mg/dL (0.6-1.0); POTASSIUM 3.4 mmol/L (3.5-5.1)
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
[2021-12-10 08:40] VITALS: BP 132/78
--- NOTE | 2021-12-10 15:16 | NUR ---
DPOA/DTFelicity SUH) REQUESTED TO BE CALLED AND NOTIFIED OF ANY PATIENT EVENTS/STATUS CHANGES.
[2021-12-10 16:37] VITALS: BP 127/76
--- NOTE | 2021-12-10 18:19 | NUR ---
PATIENT ALERT AND ORIENTEDX 4. MULTIPLE C/O PAIN AMD BEING HUNGRY. IV PAIN MEDICINE GIVEN ORDERED. CT OF ABD DONE. PATIENT ADVANCED TO CLEAR LIQ DIET.
[2021-12-10 21:16] VITALS: BP 125/68
--- NOTE | 2021-12-11 06:34 | NUR ---
patient was confused this shift wanted to go outside to smoke. pain controlled this shift. fall precaution in place. patient in bed asleep at this time breathing regular and unlaboured
[2021-12-11 08:24] LABS: HEMATOCRIT 36.7 % (37.0-47.0); HEMOGLOBIN 12.4 gm/dL (12.0-15.0); MCH 33.3 pg (26.0-34.0); MCHC 33.7 g/dL (28.0-37.0); MCV 98.8 fL (80.0-100.0); PLATELET COUNT 280 thou/uL (150-400); RBC 3.71 mil/uL (4.20-5.00); RDW 13.9 % (10.5-14.5); WBC 9.8 thou/uL (4.0-11.0)
[2021-12-11 08:37] LABS: CALCIUM 8.3 mg/dL (8.5-10.1); CREATININE 0.6 mg/dL (0.6-1.0); DIRECT BILIRUBIN 0.1 mg/dL (<0.1-0.2); PHOSPHORUS 2.7 mg/dL (2.6-4.7); TOTAL BILIRUBIN 0.4 mg/dL (0.2-1.0)
[2021-12-11 09:00] VITALS: BP 111/64
[2021-12-11 09:03] LABS: ABSOLUTE NEUTROPHILS 7.7 thou/uL (1.4-8.2); PLATELET ESTIMATE NORMAL
[2021-12-11 16:30] VITALS: BP 136/91
[2021-12-11 22:15] VITALS: BP 127/71
--- NOTE | 2021-12-12 04:22 | NUR ---
PT IS ALERT AND ORIENTED. SHE CONTINUES TO HAVE ABDOMINAL PAIN REQUIRING IV PAIN MEDS. SHE IS IMPULSIVE. USING BSC. AFEBRILE. PLAN FOR DRAIN PLACEMENT FOR INCREASING ABSCESS SIZE.
[2021-12-12 06:21] LABS: ABSOLUTE NEUTROPHILS 6.3 thou/uL (1.4-8.2); BASOPHILS 0.5 % (0.0-2.0); EOSINOPHILS 0.4 % (0.0-3.0); HEMATOCRIT 36.2 % (37.0-47.0); HEMOGLOBIN 12.2 gm/dL (12.0-15.0); LYMPHOCYTES 10.9 % (24.0-44.0); MCH 33.5 pg (26.0-34.0); MCHC 33.7 g/dL (28.0-37.0); MCV 99.4 fL (80.0-100.0); MONOCYTES 15.2 % (1.0-8.0); PLATELET COUNT 279 thou/uL (150-400); RBC 3.64 mil/uL (4.20-5.00); RDW 13.9 % (10.5-14.5); WBC 8.6 thou/uL (4.0-11.0)
[2021-12-12 06:42] LABS: ALBUMIN 2.1 g/dL (3.4-5.0); CALCIUM 7.7 mg/dL (8.5-10.1); CREATININE 0.6 mg/dL (0.6-1.0); MAGNESIUM 1.1 mg/dL (1.8-2.4); TOTAL BILIRUBIN 0.3 mg/dL (0.2-1.0); TOTAL PROTEIN 5.7 g/dL (6.4-8.2)
[2021-12-12 07:21] VITALS: BP 126/83
[2021-12-12 12:28] LABS: APTT 35.1 Seconds (24.5-32.8); INR 1.32; PROTIME 14.2 Seconds (10.5-12.1)
[2021-12-12 15:37] VITALS: BP 124/73
[2021-12-12 20:00] VITALS: BP 124/73
--- NOTE | 2021-12-13 04:20 | NUR ---
Pt. rested quietly at intervals during the night when checked on during frequent rounds. Daughter called and voiced some concerns about her mother having confused thoughts. Expressed to her that she did have some iv pain meds and being in a different environment can contribute to this. Upon assessment patient was alert and oriented times three. Pt. did express that she is wanting to go home. Pain meds with some relief of abdominal pain (see emar). Up to the bedside comode with stand by assistance. Bed alarm is on. Will continue to monitor for any chronic cofusion.
[2021-12-13 07:54] VITALS: BP 125/78
--- NOTE | 2021-12-13 11:52 | NUR ---
Met with patient who admits with diverticulitis. patient reports she lives in independent apt. She reports she has caregiver from [employer] 7 days a week 5.5 hours a day. She does her own cooking, bathing. She has cane and walker she uses. She is eager to discharge home today. Patient reports steps up to her apt at times difficulty. But she is eager to return home. casemgt following.
[2021-12-13 12:57] LABS: ABSOLUTE NEUTROPHILS 5.1 thou/uL (1.4-8.2); BASOPHILS 0.6 % (0.0-2.0); EOSINOPHILS 0.6 % (0.0-3.0); HEMOGLOBIN 12.5 gm/dL (12.0-15.0); LYMPHOCYTES 12.7 % (24.0-44.0); MCH 33.6 pg (26.0-34.0); MCHC 32.9 g/dL (28.0-37.0); MCV 102.3 fL (80.0-100.0); PLATELET COUNT 276 thou/uL (150-400); POLYS 71.1 % (36.0-66.0); RBC 3.71 mil/uL (4.20-5.00); RDW 14.6 % (10.5-14.5); WBC 7.1 thou/uL (4.0-11.0)
[2021-12-13 13:28] LABS: ALBUMIN 2.1 g/dL (3.4-5.0); CALCIUM 7.8 mg/dL (8.5-10.1); CREATININE 0.7 mg/dL (0.6-1.0); MAGNESIUM 1.8 mg/dL (1.8-2.4); POTASSIUM 3.6 mmol/L (3.5-5.1); TOTAL PROTEIN 5.9 g/dL (6.4-8.2)
[2021-12-13] MEDS ORDERED: METRONIDAZOLE500 M4 PO (13:49)
[2021-12-13 13:50] LABS: TOTAL BILIRUBIN 0.2 mg/dL (0.2-1.0)
[2021-12-13 15:08] VITALS: BP 125/78
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
== END 2021-12-13 16:07 | disposition home or self-care (01) | DRG 392 ==
LOC: ER 06:23 → 4S 10:23 → EROBS 10:23 → 4S 21:21
PROVIDERS: Hospitalist; Internal Medicine; Nurse Practitioner; Radiology Diagnostic Radiology; Student in an Organized Health Care Education/Training Program; ADMIT Surgery; ATTEND Surgery
DX: K57.20 Diverticulitis of large intestine with perforation and abscess without bleeding (principal); E44.0 Moderate protein-calorie malnutrition; E87.6 Hypokalemia; E83.42 Hypomagnesemia; Z88.8 Allergy status to other drugs, medicaments and biological substances; Z86.73 Personal history of transient ischemic attack (TIA), and cerebral infarction without residual deficits; F03.90 Unspecified dementia, unspecified severity, without behavioral disturbance, psychotic disturbance, mood disturbance, and anxiety; J44.9 Chronic obstructive pulmonary disease, unspecified; Z68.24 Body mass index [BMI] 24.0-24.9, adult; F17.210 Nicotine dependence, cigarettes, uncomplicated; Z79.899 Other long term (current) drug therapy; H16.329 Diffuse interstitial keratitis, unspecified eye; G62.9 Polyneuropathy, unspecified
CPT/HCPCS: 10195; 27000